=== PATIENT | male | born 1975 | race Caucasian/White ===

== ENCOUNTER 2019-05-01 16:40 | Inpatient (IN) | payer MEDICAID, OTHER ==
--- OUTSIDE RECORDS SUMMARY | 2019-05-01 17:04 | XMS REPORT | Continuity of Care Document ---
:1975 External Reference #:[id number] Author Name Eyal Carlos NP (transmitted by agent of provider Genet Sandoval) Address [address], [place] [address] Care Team Providers Name Role Phone Kayla Ibarra MD - Internal Care Team Information Account Specialist Medicine Problems Active Problems Provider Date Essential hypertension Eyal Carlos NP Onset: 11/24/2016 History of methamphetamine abuse Eyal Carlos NP Onset: 11/24/2016 Social History Type Date Description Comments Sex Unknown ETOH Use Denies alcohol use Recreational Drug Use Former Drug User Meth. No drugs currently, in recovery Tobacco Use Start: Unknown Patient is a current smoker, smokes every day Smoking Status Reviewed: 04/18/19 Patient is a current smoker, smokes every day Exercise Type/Frequency Exercises sporadically Allergies, Adverse Reactions, Alerts Description No Known Drug Allergies Medications Active Medications SIG Qnty Indications Ordering Date Provider Bupropion 2 tablets daily 60tabs F32.89 Eyal Carlos NP 04/18/2019 Hydrochloride ER (XL) 150mg Tablets ER 24HR Loratadine once a day for 30caps R05 Eyal Carlos NP 04/18/2019 10mg Capsules allergies Hydroxyzine HCL 1-2 tablets by 40tabs F41.9 Eyal Carlos NP 04/18/2019 25mg mouth every 6 Tablets hours as needed for anxiety Cephalexin take one capsule 28caps H60.12 Eyal Carlos NP 04/18/2019 500mg Capsules every 6 hours for 7 days Amlodipine Besylate 1 by mouth every 30tabs I10 Eyal Carlos NP 02/24/2018 5mg day Tablets Vitamin B-12 1 by mouth every Unknown Natural day 500mcg Tablets Immunizations Description No Information Available Vital Signs Date Vital Result Comment 04/18/2019 2:46pm Height 72 inches 6'0" Weight 181.00 lb Heart Rate 112 /min BP Systolic 127 mmHg BP Diastolic 83 mmHg BP Systolic Recheck 136 mmHg BP Diastolic Recheck 86 mmHg Body Temperature 97.9 F O2 % BldC Oximetry 96 % BMI (Body Mass Index) 24.5 kg/m2 02/24/2018 2:52pm Height 72 inches 6'0" Weight 187.00 lb Heart Rate 88 /min BP Systolic 140 mmHg BP Diastolic 84 mmHg Body Temperature 98.2 F O2 % BldC Oximetry 97 % BMI (Body Mass Index) 25.4 kg/m2 Results Description No Information Available Procedures Description No Information Available Medical Devices Description No Information Available Encounters Description No Information Available Assessments Date Code Description Provider 04/18/2019 F32.89 Other specified depressive episodes Eyal Carlos NP 04/18/2019 F41.9 Anxiety disorder, unspecified Eyal Carlos NP 04/18/2019 I10 Essential (primary) hypertension Eyal Carlos NP 04/18/2019 R09.81 Nasal congestion Eyal Carlos NP 04/18/2019 H60.12 Cellulitis of left external ear Eyal Carlos NP Plan of Treatment Future Appointment(s):05/23/2019 4:20 pm - Eyal Carlos NP at [facility] Internal Medicine - [facility]04/18/2019 - Eyal Carlos NPF32.89 Other specified depressive episodesNew Medication:Bupropion Hydrochloride ER (XL) 150 mg - 2 tablets dailyComments:Restart the Wellbutrin, one pill daily for a week. Increase to two pills after that.Follow up:4 vwnzsJ77.9 Anxiety disorder, unspecifiedNew Medication:Hydroxyzine HCL 25 mg - 1-2 tablets by mouth every 6 hours as needed for anxietyComments:You can use the hydroxyzine up to 4 times daily when feeling anxious. This may help with the cough and allergy related symptoms. It can also be effective to help you sleep.I10 Essential (primary) hypertensionComments:Restart the amlodipine daily./ Continue checking your blood pressure.R09.81 Nasal congestionComments:Try the hydroxyzine. If you would like a referral to an rough rounder machine let me know.H60.12 Cellulitis of left external earNew Medication:Cephalexin 500 mg - take one capsule every 6 hours for 7 daysComments:Complete the entire course of antibiotic.Let me know if symptoms are worsening or not improving. Functional Status Description No Information Available Mental Status Description No Information Available Referrals Description No Information Available
--- NOTE | 2019-05-01 19:21 | ED ---
Shortness of Breath - HPI Summary HPI Summary: 43 year old M arriving via private car from [facility] complains of intermittent episodes of shortness of breath since 04/21/19. Has several episodes each day during which he is unable to catch his breath. No hx asthma. 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 No fever, chest pain, n/v/d, decreased appetite. Under a lot of recent stress from going through a separation with his partner. Recent diet change after the separation. Hx anxiety. Restarted on Wellbutrin and amlodipine on 04/18/19. Is supposed to start taking hydroxyzine but hasn't yet. Went to [facility] today where he had EKG done which showed abnormal changes. Was referred to the ED for further workup and evaluation. Current dx sinus infection for which he is on cephalexin. Hx sinus infections. Surgical hx deviated septum. No pain. 0/10 pain in severity. Reports constant nasal drainage. Has been referred to prosthetic dentist and has testing scheduled. Symptoms aggravated by sitting upright and lying down. Symptoms alleviated by nothing. PMHx reviewed. Medications reviewed. Allergies reviewed. Surgical hx and FHx reviewed. Admits to smoking cigarettes daily. Admits to drinking alcohol and doing recreational drugs, last time being this past weekend when he drank alcohol and snorted cocaine and methamphetamine. - History of Current Complaint Chief Complaint: EDShortnessOfBreath Time Seen by Provider: 05/01/19 19:15 Hx Obtained From: Patient Onset/Duration: Lasting Days - 10, Still Present Current Severity: None Aggravating Factors: Other - sitting upright and lying down Alleviating Factors: Nothing - Allergy/Home Medications Allergies/Adverse Reactions: Allergies Allergy/AdvReac Type Severity Reaction Status Date / Time No Known Allergies Allergy Verified 05/01/19 16:51 Home Medications: Home Medications LoraTADine TAB(NF) [Claritin 10 MG TAB(NF)] 10 mg PO DAILY 05/01/19 [History Confirmed 05/01/19] Omeprazole (Nf) [Prilosec (NF)] 40 mg PO DAILY 05/01/19 [History Confirmed 05/01] amLODIPine TAB* [Norvasc 5 mg TAB*] 10 mg PO DAILY 05/01/19 [History Confirmed 05/01/19] PMH/Surg Hx/FS Hx/Imm Hx Cardiovascular History: Reports: Hx Hypertension GI History: Reports: Hx Gastroesophageal Reflux Disease, Hx Irritable Bowel Musculoskeletal History: Reports: Hx Tendonitis - LEFT ELBOW Sensory History: Denies: Hx Contacts or Glasses, Hx Hearing Aid Opthamlomology History: Denies: Hx Contacts or Glasses EENT History: Reports: Other - sinus infection Psychiatric History: Reports: Hx Anxiety, Hx Depression - Surgical History Surgery Procedure, Year, and Place: RIGHT PINKY FINGER [facility]. deviated septum 2018 Hx Anesthesia Reactions: No Infectious Disease History: No Infectious Disease History: Denies: Traveled Outside the [place] in Last 30 Days - Family History Known Family History: Negative: Cardiac Disease, Hypertension, Diabetes, Respiratory Disease Family History: denies - Social History Alcohol Use: None Hx Substance Use: Yes Substance Use Type: Reports: Cocaine Substance Use Comment - Amount & Last Used: methamphetamine Hx Tobacco Use: Yes Smoking Status (MU): Heavy Every Day Tobacco Smoker Type: Cigarettes Amount Used/How Often: 3/4 PPD Have You Smoked in the Last Year: Yes Review of Systems - ROS Summary Review of Systems Summary: Home Medications Medication Instructions Recorded Confirmed Type Bupropion XL* [Wellbutrin XL *] 150 mg PO QAM 10/12/17 05/01/19 History LoraTADine TAB(NF) [Claritin 10 MG 10 mg PO DAILY 05/01/19 05/01/19 History TAB(NF)] Omeprazole (Nf) [Prilosec (NF)] 40 mg PO DAILY 05/01/19 05/01/19 History amLODIPine TAB* [Norvasc 5 mg TAB*] 10 mg PO DAILY 05/01/19 05/01/19 History Negative: Fever Positive: Other - nasal drainage Negative: Chest Pain Positive: Shortness Of Breath Gastrointestinal: Negative - decreased appetite Positive: Abdominal Pain. Negative: Vomiting, Diarrhea, Nausea Positive: Other - stress All Other Systems Reviewed And Are Negative: Yes Physical Exam - Summary Physical Exam Summary: General: Well-developed, Well-nourished MALE. No acute distress. He is mildly anxious appearing. HEENT: Normocephalic, Atraumatic. Eyes: Conjuctiva normal, PERRL. Oropharynx: Clear, mucous membranes moist, (-) exudates. Neck: Soft, FROM, (-) lymphadenopathy, (-) thyromegaly, (-) JVD. Cardiovascular: Normal sinus rhythm, (-) murmur. Lungs: Clear to auscultation bilaterally (-) wheezes, (-) rales, (-) rhonchi. Abdomen: Soft, non-tender, non-distended, (-) organomegaly, normal bowel sounds. Back: (-) CVA tenderness Extremities: No edema. Skin: Warm, dry, (-) rash. Neuro: Alert and oriented x3, no focal deficits. Psychiatric: Mood normal, affect normal. Triage Information Reviewed: Yes Vital Signs On Initial Exam: Initial Vitals Temp Pulse Resp BP Pulse Ox 99.1 F 117 18 130/95 100 05/01/19 16:42 05/01/19 16:42 05/01/19 16:42 05/01/19 16:42 05/01/19 16:42 Vital Signs Reviewed: Yes Procedures - Sedation Patient Received Moderate/Deep Sedation with Procedure: No Diagnostics - Vital Signs Vital Signs Temp Pulse Resp BP Pulse Ox 05/01/19 18:30 98.2 F 110 16 132/85 100 05/01/19 16:42 99.1 F 117 18 130/95 100 - Laboratory Result Diagrams: 05/01/19 19:24 05/01/19 19:24 Lab Statement: Any lab studies that have been ordered have been reviewed, and results considered in the medical decision making process. - Radiology CXR Radiology Interpretation Completed By: ED Physician Summary of Radiographic Findings: Increased interstitial markings consistent with fluid overload. PENDING OFFICIAL REPORT. - EKG 1950 Cardiac Rate: Tachycardia - 107 BPM EKG Rhythm: Sinus Tachycardia Summary of EKG Findings: EKG at 19:50 reveals normal sinus tachycardia with rate of 107 BPM. T wave depressions in the lateral leads. No previous EKG to compare. This EKG was reviewed and interpreted by Dr. Lange. Course/Dx - Course Course Of Treatment: 43-year-old male presents from home with episodes of shortness of breath. Patient states he was recently restarted on his anxiety and hypertension medications. He does admit to alcohol and cocaine intake over the weekend. Workup demonstrates elevated troponin and BNP. Elevated d-dimer. CTA ordered. Patient given aspirin and beta mayra. Lovenox. Patient referred to hospitalist for admission. - Diagnoses Provider Diagnoses: Tobacco use, Acute coronary syndrome - Physician Notifications Discussed Care of Patient With: Eloy Gonzalez Time Discussed With Above Provider: 20:20 Instructed by Provider To: Admit As Inpatient Discharge ED - Sign-Out/Discharge Documenting (check all that apply): Patient Departure - Discharge Plan Condition: Good Disposition: ADMITTED TO [facility] - Billing Disposition and Condition Condition: GOOD Disposition: Admitted to [facility] - Attestation Statements Document Initiated by Scribe: Yes Documenting Scribe: Freida Sosa Provider For Whom Duaneibe is Documenting (Include Credential): Paola Lange MD Scribe Attestation: Freida Nicholas, scribed for Paola Lange MD on 05/02/19 at 0551. Scribe Documentation Reviewed: Yes Provider Attestation: The documentation as recorded by the Freida collins accurately reflects the service I personally performed and the decisions made by me, Paola Lange MD Status of Scribe Document: Viewed
[2019-05-01 19:33] LABS: ABS Lymphocytes 1.8 10^3/ul (1.0-4.8); ABS Monocytes 0.4 10^3/ul (0-0.8); ABS Neutrophils 5.2 10^3/ul (1.5-7.7); Eosinophil % 0.4 %; Hematocrit 41 % (42-52); Hemoglobin 14.2 g/dL (14.0-18.0); Lymphocyte % 23.9 %; Mean Corpuscular HGB Conc 35 g/dL (31-36); Mean Corpuscular Hemoglobin 32 pg (27-31); Mean Corpuscular Volume 92 fL (80-94); Mean Platelet Volume 8.8 fL (7.4-10.4); Platelet Count 206 10^3/uL (150-450); Red Blood Count 4.41 10^6 /uL (4.18-5.48); Red Cell Distribution Width 13 % (10-15); White Blood Count 7.4 10^3/uL (3.5-10.8)
[2019-05-01 19:39] LABS: INR 1.17 (0.82-1.09)
[2019-05-01 19:56] LABS: ALT 44 U/L (7-52); AST 34 U/L (13-39); Albumin 3.6 g/dL (3.2-5.2); Albumin/Globulin Ratio 1.3 (1-3); Alkaline Phosphatase 80 U/L (34-104); Anion Gap 7 mmol/L (2-11); BUN/Creatinine Ratio 18.7 (8-20); Blood Urea Nitrogen 25 mg/dL (6-24); CO2 Carbon Dioxide 28 mmol/L (22-32); Calcium 8.7 mg/dL (8.6-10.3); Chloride 104 mmol/L (101-111); EGFR African American 69.7 (>60); EGFR Non-African American 57.6 (>60); Globulin 2.7 g/dL (2-4); Glucose 148 mg/dL (70-100); Potassium 4.1 mmol/L (3.5-5.0); Sodium 139 mmol/L (135-145); Total Protein 6.3 g/dL (6.4-8.9)
[2019-05-01 20:01] LABS: Troponin I 0.05 ng/mL (<0.03)
[2019-05-01 20:10] LABS: TSH (Thyroid Stimulating Horm) 4.61 mcIU/mL (0.34-5.60)
[2019-05-01] MEDS ORDERED: Aspirin 81 mg CHEW TAB* 81 MG TAB.CHEW PO ONE (20:22)
[2019-05-01] MEDS ORDERED: Metoprolol Tartrate IV* 1 MG/ML 5 ML VIAL IV ONE (20:23)
[2019-05-01] MEDS ORDERED: Enoxaparin(*) 80 MG/0.8 ML SYR SUBCUT ONE (20:24)
[2019-05-01 21:39] LABS: Erythrocyte Sed Rate 24 mm/Hr (0-14)
[2019-05-01 22:51] LABS: Troponin I 0.07 ng/mL (<0.03)
[2019-05-01] MEDS ORDERED: Benzonatate CAP* 100 MG PO PRN (23:13)
[2019-05-01] MEDS ORDERED: Azithromycin TAB* 250 MG PO ONE (23:14)
[2019-05-01] MEDS ORDERED: NS 0.9% 1000 ML** 1,000 ML IV ONE (23:58)
[2019-05-02] MEDS ORDERED: Iodixanol* (CONTRAST) 320 MG/ML 100 ML SDV IV ONE (01:09)
[2019-05-02 01:49] LABS: Troponin I 0.05 ng/mL (<0.03)
[2019-05-02] MEDS ORDERED: Ondansetron INJ* 2 MG/ML VIAL IV PRN (02:40)
[2019-05-02] MEDS: Metoprolol Tartrate TAB* 25 MG PO SCH ×2 (02:47→10:53)
[2019-05-02] MEDS ORDERED: Lorazepam PYXIS KEY PRN (04:08)
[2019-05-02] MEDS ORDERED: LORazepam INJ* 2 MG/ML 1 ML VIAL IV PUSH PRN ×2 (04:08→11:31)
[2019-05-02 04:36] LABS: Urine Benzodiazepine Screen None Detected (None Detect); Urine Opiates Screen None Detected (None Detect)
[2019-05-02 04:50] LABS: Troponin I 0.05 ng/mL (<0.03)
[2019-05-02] MEDS ORDERED: BuPROPion XL* 150 MG TAB.XL PO SCH (09:00)
[2019-05-02] MEDS ORDERED: amLODIPine TAB* 5 MG PO SCH (09:00)
[2019-05-02] MEDS ORDERED: Pantoprazole TAB * 40 MG TAB PO SCH (09:00)
[2019-05-02] MEDS ORDERED: Aspirin EC TAB* 81 MG TAB.EC PO SCH (09:00)
[2019-05-02] MEDS ORDERED: Enoxaparin(*) 80 MG/0.8 ML SYR SUBCUT SCH (09:00)
[2019-05-02] MEDS ORDERED: Cetirizine* 10 MG TAB PO SCH (09:00)
[2019-05-02] MEDS ORDERED: Furosemide IV* 10 MG/ML VIAL (40 MG) IV ONE (09:57)
[2019-05-02] MEDS ORDERED: NS 0.9% 50 ML* 50 ML IV SCH (10:00)
[2019-05-02] MEDS ORDERED: Aspirin 81 mg CHEW TAB* 81 MG TAB.CHEW PO SCH (10:00)
--- NOTE | 2019-05-02 10:23 | HP ---
CC: Eyal Carlos NP, [facility] ADMISSION HISTORY AND PHYSICAL: DATE OF ADMISSION: 05/01/19 CHIEF COMPLAINT: Dyspnea. HISTORY OF PRESENT ILLNESS: Mr. Olsen is a 43-year-old man with history of hypertension and a nxiety who reports episodic dyspnea that began around 04/21/19. His breathing tends to be worse when supine, but also worse with exertion. 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 He also reports sweating and diaphoresis when he is having dyspnea, bu t denies any chest pain, nausea, or vomiting. He does have what he calls a sinus infection and compl ains about coughing and thick tenacious phlegm. The patient reports he was on cephalexin recently fo r a sinus infection, but no longer is on antibiotic. The patient denies history of heart disease or chronic lung disease. PAST MEDICAL HISTORY: Includes hypertension, anxiety, and GERD. PAST SURGICAL HISTORY: Deviated septum repair and right fifth finger tendon repair. MEDICATIONS ON ADMISSION: 1. Amlodipine 10 mg p.o. daily. 2. Wellbutrin XL 150 mg p.o. q.a.m. 3. Loratadine 10 mg p.o. daily p.r.n. 4. Omeprazole 40 mg p.o. daily. ALLERGIES: None. FAMILY HISTORY: Notable for 3 sisters who are alive and well. Mother and father alive and well. Hi s grandfather in World War II. 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 He is from his recently and under a great deal of stress. He has 4 children. He smokes cigarettes, from 3 cigarettes a day up to three-quarte rs of a pack a day. He drinks alcohol socially and he went to a republican last week and had cocaine and possible amphetamines as well. REVIEW OF SYSTEMS: The patient denies any fevers, weight loss, or anorexia. The patient denies any chest pain or peripheral edema. The patient denies any hemoptysis. The patient does report some vom iting with coughing in recent days. Remainder of a 14-point review of systems is negative, other than mentioned in the HPI. PHYSICAL EXAMINATION GENERAL: He is an anxious-appearing middle-aged man who appears diaphoretic and coughing constantly with a dry cough. VITAL SIGNS: Temperature is 37.3, pulse 103 to 116, respirations 20, blood pressure is 111/55, O2 sa t is 92%. HEENT: Head is normocephalic, atraumatic. Sclerae are anicteric. Pupils equal, round, and reactive to light and accommodation. Oropharynx is moist. No lesions. NECK: No JVD. No carotid bruit. No thyromegaly. LUNGS: Clear to auscultation and percussion bilaterally. HEART: Tachycardic, regular. No murmurs. ABDOMEN: Soft. Positive bowel sounds. No hepatosplenomegaly. EXTREMITIES: No peripheral edema. Dorsalis pedis pulses are 1+ bilaterally. NEUROLOGIC: Cranial nerves II through XII are intact. Motor strength is 5/5 throughout. Deep tendo n reflexes are 1+ and symmetric. SKIN EXAM: Notable for a few vesicular lesions in the left neck. Inferior to the ear, there is an e xcoriated lesion on the tragus of the left external ear. DIAGNOSTIC STUDIES/LAB DATA: Laboratory Data: Sodium 139, potassium 4.1, chloride 104, bicarb 28, BUN 25, creatinine 1.34, glucose 145, calcium 8.7. Albumin 3.6, AST 34, ALT 44. INR 1.17. D-dimer is 379. BNP is 834. Lactic acid 1.6. Troponin 0.15. TSH 4.61. White count 7.4, hemoglobin 14.2, h ematocrit 41%, platelets 306. EKG shows normal sinus rhythm and normal axis. T-wave inversion in I, aVL, and V4 through V6. There is no old EKG to compare with. Chest x-ray shows some cephalization of vessels. No effusions. No pulmonary edema. ASSESSMENT AND PLAN: A 43-year-old man presenting with dyspnea and EKG changes as well as a mildly e levated troponin. The concern would be for acute coronary syndrome versus pericarditis. The differe ntial also would include bronchitis, but the main concern would be that he could have a new onset of heart failure given his elevated BNP, mildly elevated D-dimer, and risk factors for heart disease; wh ich include tobacco abuse, cocaine use, and hypertension. The patient will be admitted to the hospit al, followed on telemetry with serial enzymes. The patient will be started on aspirin and metoprolol and subcutaneous Lovenox to prevent further thrombosis. Tomorrow we will get an echocardiogram and plan a stress test if he rules out for myocardial infarction. For his bronchitis, we will give him azithromycin orally and Tessalon Perles as needed for cough. For elevated D-dimer, the differential would also include pulmonary embolism with some heart strain c ausing elevated troponin. CT angiogram has been ordered and is pending at the time of admission. Code status is full. DVT prophylaxis. At this point, continue with early ambulation unless the CT shows pulmonary embolis Danie [id number]/[facility] #: [id number]
--- NOTE | 2019-05-02 10:26 | ECHO ---
*[facility]* [place] [address] Fax #: [phone] Transthoracic Echocardiogram Patient: Niall Olsen : 1975 Study Date: 05/02/2019 Age: 43 Gender: M HR: 88 bpm Height: 72 in /182.9 cm BSA: 2.04 m^2 Weight: 179.6 lb /81.6 kg BMI: 24.4 kg/m^2 *Websphere Architect: Grace Robison *Referring Physician: * Eloy GonzalezReading Physician: * Valente Ray MD Indications: SOB. History: Dyspnea. Risk factors: Drug abuse. Current tobacco use. Conclusions Summary: - Left ventricle: The cavity size is dilated. Wall thickness is mildly increased. Systolic function is severely reduced. The estimated ejection fraction is <10%. Globally. Can not r/o a clot in left ventricle apex. - Left atrium: The atrium is mildly dilated. - Right atrium: The atrium is dilated. - Mitral valve: There is moderate to severe regurgitation. - Aortic valve: There is trace regurgitation. - Tricuspid valve: There is mild-moderate regurgitation. - Pulmonic valve: There is trace to mild regurgitation. - No previous echocardiogram available. Study data: Transthoracic echocardiogram. Procedure: Transthoracic echocardiography was performed. Image quality was excellent. Complete 2D, spectral Doppler, and color flow Doppler. Location: Bedside. Patient status: Inpatient. Patient room number: 438. Rhythm: Normal sinus rhythm. Findings Left ventricle: The cavity size is dilated. Wall thickness is mildly increased. Systolic function is severely reduced. The estimated ejection fraction is <10%. Left ventricular diastolic function parameters are normal. Right ventricle: The cavity size is dilated. Wall thickness is normal. Systolic function is severely reduced. Left atrium: The atrium is mildly dilated. Right atrium: The atrium is dilated. Mitral valve: The leaflets are normal thickness. There is no evidence of stenosis. There is moderate to severe regurgitation. Aortic valve: The valve is trileaflet. The leaflets are normal thickness. There is no evidence of stenosis. There is trace regurgitation. Tricuspid valve: The leaflets are normal thickness. There is no evidence of stenosis. There is mild-moderate regurgitation. Pulmonic valve: The leaflets are normal thickness. There is no evidence of stenosis. There is trace to mild regurgitation. Aorta: The aortic root appears normal. The aortic arch appears normal. Pericardium: A trace pericardial effusion is identified. Pulmonary arteries: Systolic pressure is within the normal range, estimated to be 30 mm Hg. Systemic veins: Inferior vena cava: The vessel is normal in size. Pulmonary veins: The Pulmonary veins appear normal. Measurements Left ventricle Value Ref Aortic valve continued Value Ref YOLANDE, LAX 5.7 cm 4.2 - Peak grad, S 2.0 mm Hg ----- 5.8 MARTINEZ, VTI 2.64 cm^2 ----- ESD, LAX (H) 5.4 cm 2.5 - MARTINEZ, Vmax 2.32 cm^2 ----- 4.0 FS, LAX (L) 4 % 25 - 43 Mitral valve Value Ref PW, ED, LAX (H) 1.4 cm 0.6 - Peak E 0.75 m/sec ----- 1.0 Peak A 0.5 m/sec ----- E', avg, TDI 7.2 cm/sec -------- Decel time 59 ms - ---- E/e', avg, TDI 10 <=14 Peak E/A ratio 1.5 ----- ERO, PISA 0.25 cm^2 ----- LVOT Value Ref MR vol, PISA 38 ml ----- Diam, S 2.00 cm -------- MR fraction, PISA 61 % ----- Area 3.1 cm^2 -------- Peak rebekah, S 0.46 m/sec -------- Pulmonic valve Value Ref Mean grad, S 0 mm Hg -------- Peak v, S 0.46 m/sec ----- SV 24 ml -------- Peak grad, S 1.0 mm Hg ----- SV/bsa 12 ml/m^2 -------- Tricuspid valve Value Ref Ventricular septum Value Ref TR peak v 2.01 m/sec <=2 .8 IVS, ED (H) 1.5 cm 0.6 - Peak RV-RA grad, S 16 mm Hg ----- 1.0 Max TR rebekah 2.54 m/sec ----- Right ventricle Value Ref Aortic root Value Ref YOLANDE, LAX 3.7 cm -------- Root diam 3.7 cm <4. 2 YOLANDE minor ax, A4C (H) 4.4 cm 1.9 - mid 3.5 Ascending aorta Value Ref AAo AP diam, S 3.6 cm ----- Left atrium Value Ref ML dim, A4C 5.1 cm -------- Aortic arch Value Ref SI dim, A4C 6.0 cm -------- Arch diam 2.9 cm ----- Vol/bsa, ES, A/L (H) 45 ml/m^2 16 - 34 Decending aorta Value Ref Right atrium Value Ref Savage peak rebekah 0.46 m/sec ----- SI dim, ES (H) 6.3 cm 3.4 - 5.3 Inferior vena cava Value Ref ML dim, ES, A4C (H) 4.9 cm 2.6 - Diam 2.2 cm ----- 4.4 SI dim, ES, A4C (H) 6.3 cm 3.4 - 5.3 SI dim/bsa, ES, (H) 3.1 cm/m^2 1.8 - A4C 3.0 Aortic valve Value Ref Peak v, S 0.63 m/sec -------- VTI, S 9.3 cm -------- Mean grad, S 1.0 mm Hg -------- Legend: (L) and (H) angel values outside specified reference range. Prepared and electronically signed by Valente Ray MD 05/02/2019 10:26
[2019-05-02] MEDS ORDERED: Heparin 2 UNITS/ML IVPREMIX* 3,000 ML IV ONE (11:25)
[2019-05-02] MEDS ORDERED: Lidocaine 1% INJ* 10 MG/ML 30 ML SDV ONE (11:25)
[2019-05-02] MEDS ORDERED: Iodixanol 320 (CONTRAST) 100 ML SDV ONE (11:26)
[2019-05-02] MEDS ORDERED: LORazepam INJ* 2 MG/ML 1 ML VIAL ONE ×2 (11:37→12:35)
[2019-05-02 11:46] VITALS: BP 116/93
--- NOTE | 2019-05-02 12:09 | TRS ---
DATE OF ADMISSION: 05/01/2019 at approximately 2300. DATE OF TRANSFER: 05/02/2019. ATTENDING PHYSICIAN WHILE IN THE HOSPITAL: Dr. Wing Wu * (dictated by ROBLES Weller). ACCEPTING PHYSICIAN: Dr. Oviedo of the Advanced Heart Failure Service at [facility]. DISPOSITION: Transferred to a higher level of care to the Advanced Cardiology Service at [facility] under Dr. Oviedo. HISTORY OF PRESENT ILLNESS/HOSPITAL COURSE: Niall Olsen is a 43-year- old white male with a past medical history significant for hypertension, anxiety , and GERD who presented to the emergency department on 05/01/2019 due to dyspnea that began several weeks prior. It has been worse when he is supine and worse with exertion as well. It had come to the point where he was unable to perform his normal duties on the day of presentation. In brief, the patient was admitted to the hospital significantly tachycardic with heart rate in the 120s, stable blood pressure, and without hypoxia. He had a troponin that peaked at 0.07 and later down trended to 0.05. He had a CTA of his chest and thorax which was negative for PE. He had an echocardiogram which demonstrated an EF of 5 to 10 percent and a left ventricle thrombus could not be ruled out. The patient's initial EKG demonstrated T-wave inversions in the lateral leads. There was no prior EKG for comparison, including in his outpatient records. There were no Q- waves. Cardiology Services were immediately consulted and Annabelle Zuniga NP evaluated the patient and assisted with this transfer to [facility] Advanced Heart Failure Services. The patient will be transported emergently and the means of transport is still pending at this time. Our wafer abrading machine tender, Dr. Silverio, has been contacted regarding the balloon pump requested by Dr. Oviedo and this procedure is pending at this time. The patient is currently in the intensive care unit on BiPAP. CURRENT ACTIVE MEDICATIONS: 1. The patient received Lovenox 80 mg subcu. 2. The patient received 81 mg of aspirin this morning. 3. The patient received 50 ml of normal saline KVO. 4. The patient received 40 mg of IV Lasix this morning. 5. The patient received Cetirizine 10 mg p.o. this morning. All other medications have been held. They are: PRNS: 1. Zofran 4 mg IV q.6 hours prn nausea or vomiting. 2. Ativan 1 mg IV push q.6 hours prn anxiety. HOME MEDICATIONS: 1. Loratadine 10 mg p.o. daily. 2. Omeprazole 40 mg p.o. daily. 3. Amlodipine 10 mg p.o. daily. 4. Wellbutrin 150 mg p.o. daily. Of note, the patient had Metoprolol tartrate 25 mg po ordered and was last given 2:47 a.m. this morning and has since been held. His home Amlodipine has not been given. CONDITION: Guarded. ROBLES WELLER [id number]/[facility] #: [id number] MTDD
[2019-05-02] MEDS ORDERED: Lorazepam PYXIS KEY ONE (12:34)
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
--- NOTE | 2019-05-02 13:16 | CATH ---
CC: Eyal Carlos NP; Dr. Ray; Dr. David Oviedo MD ([facility] * INTRAAORTIC BALLOON PUMP PLACEMENT: DATE OF PROCEDURE: 05/02/19 - ROOM #ICU-07 PROCEDURE: Placement of a 40 cm Arrow intraaortic balloon pump via the right femoral artery using ultrasound guidance for arterial access. INDICATION OF PROCEDURE: The patient with severe left ventricular and right ventricular systolic dysfunction with LVEF less than 10% with recurrent difficulty breathing spells, now for transfer to [facility] and asked by Dr. Ray, Annabelle Zuniga NP, and Dr. Oviedo at [facility] to place intraaortic balloon pump to stabilize the patient for transfer. MEDICATIONS GIVEN: In the cardiovascular laboratory, lidocaine was given for local anesthesia to the right femoral artery area. LABORATORY RESULTS PRE-PROCEDURE: (From 05/01/2019)- hemoglobin and hematocrit of 14.2 and 41 with a platelet count of 206,000. ESR of 24. Chemistries from 05/01/19, sodium 139, potassium 4.1, chloride 104, bicarb 28, BUN and creatinine of 25 and 1.34. Of note, troponins were 0.05, 0.07, 0.05, and 0.05 respectively over the course of yesterday to today. The B-natriuretic peptide was 834. DESCRIPTION OF PROCEDURE: The patient was prepped and draped in sterile fashion. The right femoral artery was assessed by ultrasound and the right femoral artery was cannulated using an anterior wall only stick. The intraaortic balloon sheath was placed followed by the intraaortic balloon pump. The balloon was then turned on and had appropriate augmentation and afterload. It was placed on 1:1 pumping. The sheath was sutured in place and the clips were utilized to secure the intraaortic balloon pump. 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 The patient was stable at the time of transfer. The patient appeared to be in less distress at the end of the procedure with the balloon pump functioning. Afterwards I personally called Dr. Oviedo to keep him informed of the patient's status. [id number]/[facility] #: [id number] [facility]
[2019-05-02] MEDS ORDERED: Azithromycin TAB* 250 MG PO SCH (21:00)
== END 2019-05-02 15:23 | disposition short-term general hospital (02) | DRG 194 ==
LOC: ED 16:40 → MEDTELE 22:50 → INTOOBSV 22:50 → OBSVTOIN 22:50 → ICU 05-02 10:22 → OBSVTOIN 05-02 10:22
PROVIDERS: ADMIT Internal Medicine; ATTEND Internal Medicine
PROC: 5A02210 Assistance with Cardiac Output using Balloon Pump, Continuous (ICD-10-PCS; principal; 2019-05-02 11:30)
DX: I11.0 Hypertensive heart disease with heart failure (principal); I50.82 Biventricular heart failure; K21.9 Gastro-esophageal reflux disease without esophagitis; K58.9 Irritable bowel syndrome, unspecified; F41.9 Anxiety disorder, unspecified; F32.9 Major depressive disorder, single episode, unspecified; F17.210 Nicotine dependence, cigarettes, uncomplicated; I34.0 Nonrheumatic mitral (valve) insufficiency; I42.0 Dilated cardiomyopathy; R79.89 Other specified abnormal findings of blood chemistry; R00.0 Tachycardia, unspecified; Z79.899 Other long term (current) drug therapy
CPT/HCPCS: 33967; 36415; 36600; 71045; 71275; 80053; 80307; 82803; 83605; 83880; 84443; 84484; 85025; 85379; 85610; 85652; 87641; 93005; 93306; 96372; 96374; 99284; A9270-GY; C1725; G0378; J1644; J1650; J1940; J2060; J2405; J3490; Q9967

== ENCOUNTER → 2019-05-21 14:49 | Emergency (ER) | payer MEDICAID ==
--- OUTSIDE RECORDS SUMMARY | 2019-05-21 15:02 | XMS REPORT | Continuity of Care Document ---
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 No drugs currently, in recovery Tobacco Use Start: Unknown Patient is a current smoker, smokes every day Smoking Status Reviewed: 05/14/19 Patient is a current smoker, smokes every day Exercise Type/Frequency Exercises sporadically Allergies, Adverse Reactions, Alerts Description No Known Drug Allergies Medications Active Medications SIG Qnty Indications Ordering Date Provider Vitamin B-12 1 by mouth every 30tabs Eyal Carlos NP 05/14/2019 Natural day 500mcg Tablets Ensure Plus 1 can two times 60units R63.4 Eyal Carlos NP 05/14/2019 Liquid daily Loratadine once a day for 30caps R05 Eyal Carlos NP 04/18/2019 10mg Capsules allergies Hydroxyzine HCL 1-2 tablets by 40tabs F41.9 Eyal Carlos NP 04/18/2019 25mg mouth every 6 Tablets hours as needed for anxiety Aspirin 81 1 by mouth every Unknown 81mg Tablets day DR Griderilol 1 by mouth twice Unknown 6.25mg Tablets a day Digoxin 1 by mouth every Unknown 125mcg Tablets day Lisinopril 1 by mouth every Unknown 20mg Tablets 12 hours Spironolactone 1 by mouth every Unknown 25mg day Tablets History Medications Bupropion 2 tablets daily 60tabs F32.89 Eyal Carlos NP 04/18/2019 - Hydrochloride ER (XL) 05/14/2019 150mg Tablets ER 24HR Cephalexin take one capsule 28caps H60.12 Eyal Carlos NP 04/18/2019 - 500mg Capsules every 6 hours 04/25/2019 for 7 days Immunizations Description No Information Available Vital Signs Date Vital Result Comment 05/14/2019 1:46pm Height 72 inches 6'0" Weight 169.00 lb Heart Rate 98 /min BP Systolic 102 mmHg BP Diastolic 74 mmHg Body Temperature 97.9 F O2 % BldC Oximetry 97 % BMI (Body Mass Index) 22.9 kg/m2 04/18/2019 2:46pm Height 72 inches 6'0" Weight 181.00 lb Heart Rate 112 /min BP Systolic 127 mmHg BP Diastolic 83 mmHg BP Systolic Recheck 136 mmHg BP Diastolic Recheck 86 mmHg Body Temperature 97.9 F O2 % BldC Oximetry 96 % BMI (Body Mass Index) 24.5 kg/m2 Results Test Acquired Facility Test Result H/L Range Note Date Laboratory test 05/01/2019 [facility] Troponin-I 0.07 ng/mL Critical <0.[address] (TnI) [place] [address] [phone] Laboratory test 05/01/2019 [facility] MRSA SEE RESULT 2, [address] [place] [address] [phone] CBC Auto Diff 05/01/2019 [facility] White 7.4 Normal 3.5-10.[address] Blood 10^3/[place] [address] Count [phone] Red Blood Count 4.41 10^6/uL Normal 4.18-5.48 Hemoglobin 14.2 g/dL Normal 14.0-18.0 Hematocrit 41 % Low 42-52 Mean Corpuscular Volume 92 fL Normal 80-94 Mean Corpuscular Hemoglobin 32 pg High 27-31 Mean Corpuscular HGB Conc 35 g/dL Normal 31-36 Red Cell Distribution Width 13 % Normal 10-15 Platelet Count 206 10^3/uL Normal 150-450 Mean Platelet Volume 8.8 fL Normal 7.4-10.4 Abs Neutrophils 5.2 10^3/uL Normal 1.5-7.7 Abs Lymphocytes 1.8 10^3/uL Normal 1.0-4.8 Abs Monocytes 0.4 10^3/uL Normal 0-0.8 Abs Eosinophils 0.0 10^3/uL Normal 0-0.6 Abs Basophils 0.0 10^3/uL Normal 0-0.2 Abs Nucleated RBC 0.0 10^3/uL Granulocyte % 69.3 % Lymphocyte % 23.9 % Monocyte % 5.7 % Eosinophil % 0.4 % Basophil % 0.7 % Nucleated Red Blood Cells % 0.0 Inr/Protime 05/01/2019 [facility] Inr 1.17 High 0.82-1.[address] [place] [address] [phone] Laboratory test 05/01/2019 [facility] Lactic Acid 1.6 Normal 0.5-2.0 5 finding 101 mmol/[place] [address] [phone] B-Type Natriuretic Peptide BNP 834 pg/mL High <=100 Comp Metabolic 05/01/2019 [facility] Sodium 139 mmol/L Normal 135-[address] [place] [address] [phone] Potassium 4.1 mmol/L Normal 3.5-5.0 Chloride 104 mmol/L Normal 101-111 Co2 Carbon Dioxide 28 mmol/L Normal 22-32 Anion Gap 7 mmol/L Normal 2-11 Glucose 148 mg/dL High 70-100 Blood Urea Nitrogen 25 mg/dL High 6-24 Creatinine 1.34 mg/dL High 0.67-1.17 BUN/Creatinine Ratio 18.7 Normal 8-20 Calcium 8.7 mg/dL Normal 8.6-10.3 Total Protein 6.3 g/dL Low 6.4-8.9 Albumin 3.6 g/dL Normal 3.2-5.2 Globulin 2.7 g/dL Normal 2-4 Albumin/Globulin Ratio 1.3 Normal 1-3 Total Bilirubin 0.70 mg/dL Normal 0.2-1.0 Alkaline Phosphatase 80 U/L Normal 34-104 Alt 44 U/L Normal 7-52 Ast 34 U/L Normal 13-39 Egfr Non- 57.6 >60 Egfr 69.7 >60 6 Laboratory 05/01/2019 [facility] Troponin-I 0.05 Critical < 0.03 7 test finding [address] (TnI) ng/[place] [address] [phone] TSH (Thyroid Stim Horm) 4.61 mcIU/mL Normal 0.34-5.60 D Dimer Quantitative 379 ng/mL High Less Than 230 8 Erythrocyte Sed Rate 24 mm/Hr High 0-14 1 Result TnIDx:0.07 Called to [id number] at: 22:50:03 by:[email or web address] Read back by: [email or web address] Troponin-I testing on Plasma Separator Tubes (PST) has a known false positive rate of 0.20-0.40%. All positive troponins reflex immediately to secondary confirmatory testing. Using the [employer] DxI 800 Access Immunoassay systems, the 99th percentile upper reference limit was demonstrated to be < 0.03 ng/mL. 2 Verbal to [id number] by [id number] at 2259 on 05/01/19. Results read back accurately. 3 SEE RESULT BELOW Name: NIALL OLSEN : [address]: Paola Lange MD Acct: [id number] Unit: [id number] AGE: 43 Location: ED Re05/01/19 SEX: M Status: REG ER SPEC: [id number] CHARLEY: 05/01/[address] [facility] DR: Paola Lange MD REQ: [id number] RECD: 05/01/19 STATUS: COMP OTHR DR: Eyal Carlos SOLUTION ADVISOR _ SOURCE: NASAL SPDESC: ORDERED: MRSA PCR-Nasal COMMENTS: Verbal to [id number] by [email or web address] at 2259 on 05/01/19. Results read back accurately. Procedure Result Reported Site MRSA PCR (Nasal) Final 05/01/19- 2300 ML Organism 1 MRSA DETECTED As with all diagnostic procedures, the laboratory results obtained should be used in conjunction with other clinical information available to the physician, including confirmation by another method, as applicable. * ML - Main Lab . END OF REPORT DEPARTMENT OF PATHOLOGY, [address] [place] [address] Heriberto Wade M.D. Director [facility] # [id number] 4 Standard intensity warfarin therapeutic range: 2.0-3.0 High intensity warfarin therapeutic range: 2.5-3.[address] [facility] Severe Sepsis and Septic Shock Management Bundle Measure requires all lactic acids initially measuring >2.0 mmol/L be repeated. 6 Because ethnic data is not always readily available, this report includes an eGFR for both -Americans and non- Americans. The National Kidney Disease Education Program (NKDEP) does not endorse the use of the MDRD equation for patients that are not between the ages of 18 and 70, are , have extremes of body size, muscle mass, or nutritional status, or are non- or non-. According to the National Kidney Foundation, irrespective of diagnosis, the stage of the disease is based on the level of kidney function: Stage Description GFR(mL/min/1.73 m(2)) 1 Kidney damage with normal or decreased GFR 90 2 Kidney damage with mild decrease in GFR 60-89 3 Moderate decrease in GFR 30-59 4 Severe decrease in GFR 15-29 5 Kidney failure <15 (or dialysis) 7 Result TnIDx:0.05 Called to [id number] at: 20:00:33 by:[email or web address] Read back by: [email or web address] Troponin-I testing on Plasma Separator Tubes (PST) has a known false positive rate of 0.20-0.40%. All positive troponins reflex immediately to secondary confirmatory testing. Using the [employer] 800 Access Immunoassay systems, the 99th percentile upper reference limit was demonstrated to be < 0.03 ng/mL. 8 Please note: The following may produce a false positive D Dimer test: - Rheumatoid factor greater than 60 IU/ml - Plasma hemoglobin greater than 0.05 gm/dl - Bilirubin greater than 50 mg/dl - Lipids greater than 1000 mg/dl - FDP greater than 20 ug/ml Procedures Date Code Description Status 05/02/2019 57522 ECHO Transthorasic Realtime 2D W Doppler & Color Flow Hosp Completed Medical Devices Description No Information Available Encounters Type Date Location Provider Dx Diagnosis Office Visit 04/18/2019 [employer] [facility] [employer] [facility] Internal Eyal Carlos NP F32.89 Other specified 2:40p Medicine - [facility] depressive episodes F41.9 Anxiety disorder, unspecified I10 Essential (primary) hypertension R09.81 Nasal congestion H60.12 Cellulitis of left external ear Assessments Date Code Description Provider 05/14/2019 R57.0 Cardiogenic shock Eyal Carlos NP 05/14/2019 R63.4 Abnormal weight loss Eyal Carlos NP 05/02/2019 R06.02 Shortness of breath Valente Ray M.D. 05/02/2019 R06.00 Dyspnea, unspecified Meredith Mccormack PA-C 05/02/2019 R00.0 Tachycardia, unspecified Meredith Mccormack PA-C 05/02/2019 R79.89 Other specified abnormal findings of Meredith Mccormack PA-C blood chemistry 05/01/2019 R06.02 Shortness of breath Eloy Gonzalez M.D.,FACP 05/01/2019 R79.89 Other specified abnormal findings of Eloy Gonzalez M.D.,[facility] blood chemistry 04/18/2019 F32.89 Other specified depressive episodes yEal Carlos NP 04/18/2019 F41.9 Anxiety disorder, unspecified Eyal Carlos NP 04/18/2019 I10 Essential (primary) hypertension Eyal Carlos NP 04/18/2019 R09.81 Nasal congestion Eyal Carlos NP 04/18/2019 H60.12 Cellulitis of left external ear Eyal Carlos NP Plan of Treatment Future Appointment(s):06/14/2019 8:40 am - Eyal Carlos NP at [facility] - [facility]05/14/2019 - Eyal Carlos, NPR57.0 Cardiogenic shockComments: Continue taking all medications prescribed at [place].If you have any significant worsening in symptoms call 911 or go to the ER.Follow up:cancel 05/23 appt. F/U 1 wykiwP76.4 Abnormal weight lossNew Medication:Ensure Plus - 1 can two times daily Functional Status Description No Information Available Mental Status Description No Information Available Referrals Description No Information Available
== END | disposition left against medical advice (07) ==
LOC: ED 14:49
DX: R09.02 Hypoxemia (principal); Z53.21 Procedure and treatment not carried out due to patient leaving prior to being seen by health care provider

== ENCOUNTER 2019-06-02 22:48 | Emergency (ER) | payer MEDICAID, OTHER ==
[2019-06-02 23:03] LABS: ABS Basophils 0.1 10^3/ul (0-0.2); ABS Eosinophils 0.1 10^3/ul (0-0.6); ABS Lymphocytes 2.4 10^3/ul (1.0-4.8); ABS Monocytes 0.7 10^3/ul (0-0.8); ABS Neutrophils 3.9 10^3/ul (1.5-7.7); Eosinophil % 0.9 %; Hematocrit 39 % (42-52); Hemoglobin 13.5 g/dL (14.0-18.0); Lymphocyte % 33.9 %; Mean Corpuscular HGB Conc 35 g/dL (31-36); Mean Corpuscular Hemoglobin 32 pg (27-31); Mean Corpuscular Volume 91 fL (80-94); Mean Platelet Volume 7.8 fL (7.4-10.4); Nucleated Red Blood Cells % 0.1; Platelet Count 208 10^3/uL (150-450); Red Blood Count 4.24 10^6 /uL (4.18-5.48); Red Cell Distribution Width 13 % (10-15); White Blood Count 7.1 10^3/uL (3.5-10.8)
[2019-06-02 23:09] LABS: INR 1.01 (0.82-1.09)
[2019-06-02 23:21] LABS: ALT 29 U/L (7-52); Albumin 3.9 g/dL (3.2-5.2); Albumin/Globulin Ratio 1.3 (1-3); Alkaline Phosphatase 71 U/L (34-104); BUN/Creatinine Ratio 26.2 (8-20); Blood Urea Nitrogen 27 mg/dL (6-24); CO2 Carbon Dioxide 30 mmol/L (22-32); Calcium 9.1 mg/dL (8.6-10.3); Chloride 101 mmol/L (101-111); EGFR African American 94.5 (>60); EGFR Non-African American 78.1 (>60); Globulin 2.9 g/dL (2-4); Glucose 80 mg/dL (70-100); Sodium 136 mmol/L (135-145); Total Protein 6.8 g/dL (6.4-8.9)
[2019-06-02 23:23] LABS: Troponin I 0.01 ng/mL (<0.03)
[2019-06-02 23:37] LABS: Anion Gap 5 mmol/L (2-11); Potassium 4.4 mmol/L (3.5-5.0)
[2019-06-02 23:40] LABS: Alcohol < 10 mg/dL (<10)
[2019-06-02 23:45] LABS: AST 21 U/L (13-39)
--- NOTE | 2019-06-02 23:48 | ED ---
HPI Chest Pain - HPI Summary HPI Summary: Patient is a 43 y/o M w/ Hx of HTN, GERD and heart failure who presents to [facility] with complaints of left anterior chest pain. Patient was evaluated at [facility] for SOB on 05/02/20 and was admitted. Cardioechogram showed left ventricular ejection fracture of less than 10%. Patient had intra-aortic balloon pump placed and he was transferred to [place] for further workup. He states that he was discharged on 05/10/19. Patient states that this evening, , around 2130, he had onset of left anterior chest pain while lying in bed. He denies nausea and SOB, but it is reported that family member who was with him had stated that his color was "off". Patient states that at its worst, chest pain was 5/10 in severity. He states that his CP is currently mostly resolved, stating that it is at the most 1/10 in severity. Movement is noted to aggravate Sx. 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 NKDA reported. PSHx of finger surgery. FMHx of cardiac disease and HTN reported. He denies tobacco, alcohol, and substance usage. Home medications and allergies are reviewed. - History of Current Complaint Time Seen by Provider: 06/02/19 22:49 Hx Obtained From: Patient Onset/Duration: Started Hours Ago, Still Present Timing: Lasting Hours Initial Severity: Moderate Current Severity: Mild Pain Intensity: 1 Pain Scale Used: 0-10 Numeric Chest Pain Location: Left Anterior Aggravating Factor(s): Movement Alleviating Factor(s): Nothing Associated Signs and Symptoms: Positive: Chest Pain, Other: - color was "off". Negative: Shortness of Breath, Nausea - Allergy/Home Medications Allergies/Adverse Reactions: Allergies Allergy/AdvReac Type Severity Reaction Status Date / Time No Known Allergies Allergy Verified 05/04/19 10:20 Home Medications: Home Medications Aspirin EC TAB* [Ecotrin EC Low Dose 81 MG*] 81 mg PO DAILY 06/03/19 [History Confirmed 06/03/19] Carvedilol TAB* [Coreg TAB*] 6.25 mg PO BID 06/03/19 [History Confirmed 06/03/19 ] Digoxin TAB* [Lanoxin TAB*] 0.125 mg PO DAILY 06/03/19 [History Confirmed ] Lisinopril TAB* [Prinivil TAB*] 20 mg PO BID 06/03/19 [History Confirmed ] Spironolactone TAB* [Aldactone TAB*] 25 mg PO DAILY 06/03/19 [History Confirmed 06/03/19] hydrOXYzine HCL TAB* [Atarax 25 MG TAB*] 25 mg PO TID PRN 06/03/19 [History Confirmed 06/03/19] PMH/Surg Hx/FS Hx/Imm Hx Cardiovascular History: Reports: Hx Congestive Heart Failure, Hx Hypertension Respiratory History: Comment Only: Other Respiratory Problems/Disorders - DEVIATED SEPTUM SURGERY 2018 GI History: Reports: Hx Gastroesophageal Reflux Disease, Hx Irritable Bowel Musculoskeletal History: Reports: Hx Tendonitis - LEFT ELBOW Sensory History: Denies: Hx Contacts or Glasses, Hx Hearing Aid Opthamlomology History: Denies: Hx Contacts or Glasses Psychiatric History: Reports: Hx Anxiety, Hx Depression - Surgical History Surgery Procedure, Year, and Place: RIGHT PINKY FINGER [facility]. deviated septum 2018 Hx Anesthesia Reactions: No - Immunization History Date of Influenza Vaccine: none Infectious Disease History: No Infectious Disease History: Denies: Traveled Outside the [place] in Last 30 Days - Family History Known Family History: Positive: Cardiac Disease, Hypertension Negative: Diabetes, Respiratory Disease - Social History Alcohol Use: None Hx Substance Use: Yes Substance Use Type: Reports: Cocaine Substance Use Comment - Amount & Last Used: methamphetamine Hx Tobacco Use: Yes Smoking Status (MU): Former Smoker Type: Cigarettes Amount Used/How Often: 3/4 PPD Have You Smoked in the Last Year: Yes - Additional Comments History Additional Comments: PMHx of HTN, GERD, anxiety, and heart failure PSHx of finger surgery FMHx of HTN and cardiac disease Review of Systems - ROS Summary Review of Systems Summary: Home Medications Medication Instructions Recorded Confirmed Type Aspirin EC TAB* [Ecotrin EC Low 81 mg PO DAILY 06/03/19 06/03/19 History Dose 81 MG*] Carvedilol TAB* [Coreg TAB*] 6.25 mg PO BID 06/03/19 06/03/19 History Digoxin TAB* [Lanoxin TAB*] 0.125 mg PO DAILY 06/03/19 06/03/19 History Lisinopril TAB* [Prinivil TAB*] 20 mg PO BID 06/03/19 06/03/19 History Spironolactone TAB* [Aldactone 25 mg PO DAILY 06/03/19 06/03/19 History TAB*] hydrOXYzine HCL TAB* [Atarax 25 MG 25 mg PO TID PRN 06/03/19 06/03/19 History TAB*] Positive: Chest Pain Negative: Shortness Of Breath Negative: Nausea Skin: Other - color was "off" All Other Systems Reviewed And Are Negative: Yes Physical Exam - Summary Physical Exam Summary: General: Well-developed, Well-nourished male. No acute distress. HEENT: Normocephalic, Atraumatic. Eyes: Conjuctiva normal, PERRL. Oropharynx: Clear, mucous membranes moist, (-) exudates. Neck: Soft, FROM, (-) lymphadenopathy, (-) thyromegaly, (-) JVD. Cardiovascular: Normal sinus rhythm, (-) murmur. Lungs: Clear to auscultation bilaterally (-) wheezes, (-) rales, (-) rhonchi. Abdomen: Soft, non-tender, non-distended, (-) organomegaly, normal bowel sounds. Back: (-) CVA tenderness Extremities: No edema. Skin: Warm, dry, (-) rash. Neuro: Alert and oriented x3, no focal deficits. Psychiatric: Mildly anxious appearing. Triage Information Reviewed: Yes Vital Signs On Initial Exam: Initial Vitals Temp Pulse Resp BP Pulse Ox 97.9 F 88 16 130/85 100 06/02/19 22:50 06/02/19 22:50 06/02/19 22:50 06/02/19 22:50 06/02/19 22:50 Vital Signs Reviewed: Yes Procedures - Sedation Patient Received Moderate/Deep Sedation with Procedure: No Diagnostics - Vital Signs Vital Signs Temp Pulse Resp BP Pulse Ox 06/02/19 22:50 97.9 F 88 16 130/85 100 - Laboratory Lab Results: Lab Results 06/02/19 06/02/19 06/02/19 Range/Units 22:58 22:58 22:58 WBC 7.1 (3.5-10.8) 10^3/uL RBC 4.24 (4.18-5.48) 10^6 /uL Hgb 13.5 L (14.0-18.0) g/dL Hct 39 L (42-52) % MCV 91 (80-94) fL MCH 32 H (27-31) pg MCHC 35 (31-36) g/dL RDW 13 (10-15) % Plt Count 208 (150-450) 10^3/uL MPV 7.8 (7.4-10.4) fL Neut % (Auto) 54.8 % Lymph % (Auto) 33.9 % Payne % (Auto) 9.3 % Eos % (Auto) 0.9 % Baso % (Auto) 1.1 % Absolute Neuts (auto) 3.9 (1.5-7.7) 10^3/ul Absolute Lymphs (auto) 2.4 (1.0-4.8) 10^3/ul Absolute Monos (auto) 0.7 (0-0.8) 10^3/ul Absolute Eos (auto) 0.1 (0-0.6) 10^3/ul Absolute Basos (auto) 0.1 (0-0.2) 10^3/ul Absolute Nucleated RBC 0.0 10^3/ul Nucleated RBC % 0.1 INR (Anticoag Therapy) 1.01 (0.82-1.09) Sodium 136 (135-145) mmol/L Potassium 4.4 (3.5-5.0) mmol/L Chloride 101 (101-111) mmol/L Carbon Dioxide 30 (22-32) mmol/L Anion Gap 5 (2-11) mmol/L BUN 27 H (6-24) mg/dL Creatinine 1.03 (0.67-1.17) mg/dL Est GFR ( Amer) 94.5 (>60) Est GFR (Non-Af Amer) 78.1 (>60) BUN/Creatinine Ratio 26.2 H (8-20) Glucose 80 (70-100) mg/dL Lactic Acid (0.5-2.0) mmol/L Calcium 9.1 (8.6-10.3) mg/dL Total Bilirubin 0.40 (0.2-1.0) mg/dL AST 21 (13-39) U/L ALT 29 (7-52) U/L Alkaline Phosphatase 71 (34-104) U/L Troponin I 0.01 (<0.03) ng/mL B-Natriuretic Peptide (<=100) pg/mL Total Protein 6.8 (6.4-8.9) g/dL Albumin 3.9 (3.2-5.2) g/dL Globulin 2.9 (2-4) g/dL Albumin/Globulin Ratio 1.3 (1-3) Serum Alcohol < 10 (<10) mg/dL 06/02/19 06/02/19 Range/Units 22:58 22:58 WBC (3.5-10.8) 10^3/uL RBC (4.18-5.48) 10^6 /uL Hgb (14.0-18.0) g/dL Hct (42-52) % MCV (80-94) fL MCH (27-31) pg MCHC (31-36) g/dL RDW (10-15) % Plt Count (150-450) 10^3/uL MPV (7.4-10.4) fL Neut % (Auto) % Lymph % (Auto) % Payne % (Auto) % Eos % (Auto) % Baso % (Auto) % Absolute Neuts (auto) (1.5-7.7) 10^3/ul Absolute Lymphs (auto) (1.0-4.8) 10^3/ul Absolute Monos (auto) (0-0.8) 10^3/ul Absolute Eos (auto) (0-0.6) 10^3/ul Absolute Basos (auto) (0-0.2) 10^3/ul Absolute Nucleated RBC 10^3/ul Nucleated RBC % INR (Anticoag Therapy) (0.82-1.09) Sodium (135-145) mmol/L Potassium (3.5-5.0) mmol/L Chloride (101-111) mmol/L Carbon Dioxide (22-32) mmol/L Anion Gap (2-11) mmol/L BUN (6-24) mg/dL Creatinine (0.67-1.17) mg/dL Est GFR ( Amer) (>60) Est GFR (Non-Af Amer) (>60) BUN/Creatinine Ratio (8-20) Glucose (70-100) mg/dL Lactic Acid 1.1 (0.5-2.0) mmol/L Calcium (8.6-10.3) mg/dL Total Bilirubin (0.2-1.0) mg/dL AST (13-39) U/L ALT (7-52) U/L Alkaline Phosphatase (34-104) U/L Troponin I (<0.03) ng/mL B-Natriuretic Peptide 25 (<=100) pg/mL Total Protein (6.4-8.9) g/dL Albumin (3.2-5.2) g/dL Globulin (2-4) g/dL Albumin/Globulin Ratio (1-3) Serum Alcohol (<10) mg/dL Result Diagrams: 06/02/19 22:58 06/02/19 22:58 Lab Statement: Any lab studies that have been ordered have been reviewed, and results considered in the medical decision making process. - Radiology CXR Summary of Radiographic Findings: CXR shows no infiltrate, no pleural effusion, pending official report. - EKG 2249 Cardiac Rate: NL - rate of 81 BPM EKG Rhythm: Sinus Rhythm Summary of EKG Findings: EKG at 2249 reveals normal sinus rhythm with rate of 81 BPM, no acute changes, no ischemic changes. This EKG was reviewed and interpreted by Dr. Lange. Chest Pain Course/Dx - Course Course Of Treatment: 43 year old male presents with chest pain starting tonight. he became concerned as he was recently discharged from the hospital with CHF. EF <10%. has had this before, worse with arm movement. no sob, diaphoresis, nausea. no f/c/cough. exam wnl. workup essentially wnl. including serial troponins. patient discharged to home. Follow up with PCP, follow up [place] for any worsening symptoms. - Diagnoses Provider Diagnoses: Chest pain Discharge ED - Sign-Out/Discharge Documenting (check all that apply): Patient Departure - discharge - Discharge Plan Condition: Stable Disposition: HOME Patient Education Materials: Chest Pain (ED) Referrals: Eyal Carlos, REGISTRATION REP [Primary Care Provider] - 3 Days Additional Instructions: PLEASE RETURN TO ED FOR ANY NEW OR WORSENING SYMPTOMS. PLEASE FOLLOW UP WITH YOUR PRIMARY CARE PHYSICIAN WITHIN THREE DAYS. - Billing Disposition and Condition Condition: STABLE Disposition: Home - Attestation Statements Document Initiated by Scribe: Yes Documenting Scribe: KARINA DELACRUZ Provider For Whom Scribe is Documenting (Include Credential): NICKI LANGE MD Scribe Attestation: IKARINA, scribed for NICKI LANGE MD on 06/03/19 at 0422. Scribe Documentation Reviewed: Yes Provider Attestation: The documentation as recorded by the scribe, KARINA DELACRUZ accurately reflects the service I personally performed and the decisions made by me, NICKI LANGE MD Status of Scribe Document: Viewed
[2019-06-03 00:47] LABS: Urine Appearance Clear; Urine Bilirubin Negative (Negative); Urine Blood Negative (Negative); Urine Color Straw; Urine Glucose Negative (Negative); Urine Ketones Negative (Negative); Urine Nitrite Negative (Negative); Urine Protein Negative (Negative); Urine Specific Gravity 1.012 (1.010-1.030); Urine Urobilinogen Negative (Negative)
[2019-06-03 00:54] LABS: Urine Benzodiazepine Screen None Detected (None Detect); Urine Opiates Screen None Detected (None Detect)
[2019-06-03 02:31] VITALS: BP 113/81
== END 2019-06-03 02:29 | disposition home or self-care (01) ==
LOC: ED 22:48
DX: R07.9 Chest pain, unspecified (principal); I11.0 Hypertensive heart disease with heart failure; I50.9 Heart failure, unspecified; K21.9 Gastro-esophageal reflux disease without esophagitis; Z87.891 Personal history of nicotine dependence; F41.9 Anxiety disorder, unspecified; F32.9 Major depressive disorder, single episode, unspecified; Z79.82 Long term (current) use of aspirin; Z79.899 Other long term (current) drug therapy
CPT/HCPCS: 36415; 71045; 80053; 80307; 80320; 81003; 83605; 83880; 84484; 85025; 85610; 93005; 99283; G0480

== ENCOUNTER 2020-01-10 16:23 | Inpatient (IN) ==
[2020-01-10] MEDS ORDERED: NS 0.9% 1000 ml BAG 1,000 ML IV ONE (16:33)
[2020-01-10 16:41] LABS: ABS Basophils 0.1 10^3/ul (0-0.2); ABS Lymphocytes 1.1 10^3/ul (1.0-4.8); ABS Monocytes 0.5 10^3/ul (0-0.8); ABS Neutrophils 4.9 10^3/ul (1.5-7.7); Eosinophil % 0.2 %; Hematocrit 46 % (42-52); Hemoglobin 15.7 g/dL (14.0-18.0); Mean Corpuscular HGB Conc 35 g/dL (31-36); Mean Corpuscular Hemoglobin 32 pg (27-31); Mean Corpuscular Volume 93 fL (80-94); Mean Platelet Volume 8.6 fL (7.4-10.4); Nucleated Red Blood Cells % 0.1; Platelet Count 230 10^3/uL (150-450); Red Blood Count 4.88 10^6 /uL (4.18-5.48); Red Cell Distribution Width 14 % (10-15); White Blood Count 6.7 10^3/uL (3.5-10.8)
[2020-01-10] MEDS ORDERED: Alteplase (100 mg Vial) 100 mg VIAL ONE (16:49)
[2020-01-10 16:50] LABS: Activated Partial Thrombo Time 29.8 seconds (26.0-38.0); INR 1.15 (0.82-1.09)
[2020-01-10] MEDS ORDERED: Alteplase (100 mg Vial) 100 mg VIAL IV ONE ×2 (17:02)
[2020-01-10 17:13] LABS: ALT 20 U/L (7-52); AST 15 U/L (13-39); Albumin 3.6 g/dL (3.2-5.2); Albumin/Globulin Ratio 1.4 (1-3); Alkaline Phosphatase 58 U/L (34-104); Anion Gap 7 mmol/L (2-11); BUN/Creatinine Ratio 13.5 (8-20); Blood Urea Nitrogen 17 mg/dL (6-24); CO2 Carbon Dioxide 27 mmol/L (22-32); Calcium 8.9 mg/dL (8.6-10.3); Chloride 106 mmol/L (101-111); Cholesterol 178 mg/dL; EGFR African American 74.6 (>60); EGFR Non-African American 61.6 (>60); Globulin 2.6 g/dL (2-4); Glucose 83 mg/dL (70-100); HDL Cholesterol 35.3 mg/dL; LDL Cholesterol 110 mg/dL; Potassium 3.9 mmol/L (3.5-5.0); Sodium 140 mmol/L (135-145); Total Protein 6.2 g/dL (6.4-8.9); Triglycerides 162 mg/dL
[2020-01-10 17:19] LABS: Alcohol, S < 10 mg/dL (<10); Digoxin 0.4 ng/ml (0.8-2.0)
[2020-01-10] MEDS ORDERED: Iodixanol (CONTRAST) 320 MG/ML 100 ML SDV IV ONE (17:31)
[2020-01-10] MEDS ORDERED: NS 0.9% 500 ml BAG 500 ML IV ONE (18:22)
[2020-01-10] MEDS ORDERED: Ondansetron 4 mg VIAL 2 MG/ML 2 ml VIAL IV PRN (18:26)
[2020-01-10] MEDS ORDERED: NS 0.9% 1000 ml BAG 1,000 ML IV SCH (18:30)
[2020-01-10 19:26] LABS: Troponin I 0.01 ng/mL (<0.03)
[2020-01-10 20:14] LABS: Urine Appearance Clear; Urine Bilirubin Negative (Negative); Urine Blood Negative (Negative); Urine Color Yellow; Urine Glucose 3+(>=500 mg/dL) (Negative); Urine Ketones Negative (Negative); Urine Nitrite Negative (Negative); Urine Protein Negative (Negative); Urine Specific Gravity 1.045 (1.010-1.030); Urine Urobilinogen Negative (Negative)
[2020-01-10 20:19] LABS: Urine Bacteria Absent (Absent); Urine Red Blood Cell Trace(0-2/hpf) (Absent); Urine Squamous Epithelial Cell Present (Absent); Urine White Blood Cell 1+(6-10/hpf) (Absent)
[2020-01-11] MEDS ORDERED: Perflutren Lipid Microsphere 3 ML VIAL ONE (07:57)
[2020-01-11 08:13] LABS: ABS Basophils 0.1 10^3/ul (0-0.2); ABS Lymphocytes 2.2 10^3/ul (1.0-4.8); ABS Monocytes 0.6 10^3/ul (0-0.8); ABS Neutrophils 4.9 10^3/ul (1.5-7.7); Eosinophil % 0.2 %; Hematocrit 43 % (42-52); Hemoglobin 15.1 g/dL (14.0-18.0); Lymphocyte % 28.7 %; Mean Corpuscular HGB Conc 35 g/dL (31-36); Mean Corpuscular Hemoglobin 33 pg (27-31); Mean Corpuscular Volume 94 fL (80-94); Mean Platelet Volume 8.6 fL (7.4-10.4); Nucleated Red Blood Cells % 0.1; Platelet Count 227 10^3/uL (150-450); Red Blood Count 4.63 10^6 /uL (4.18-5.48); Red Cell Distribution Width 14 % (10-15); White Blood Count 7.7 10^3/uL (3.5-10.8)
[2020-01-11 08:34] LABS: BUN/Creatinine Ratio 11.2 (8-20); Calcium 8.9 mg/dL (8.6-10.3); EGFR Non-African American 67.8 (>60); Magnesium 1.8 mg/dL (1.9-2.7); Potassium 4.8 mmol/L (3.5-5.0)
[2020-01-11] MEDS ORDERED: Magnesium Sulfate 2 gm BAG 2 GM/50 ML BAG IVPB ONE (08:50)
[2020-01-11] MEDS ORDERED: Iohexol 350 (CONTRAST) 500 ML MDV IV ONE (18:15)
[2020-01-11] MEDS ORDERED: Heparin DRIP 25,000 UNITS BAG 25,000 UNITS/500 ML BAG ONE (20:51)
[2020-01-11] MEDS ORDERED: Labetalol IV 5 MG/ML 20 ml VIAL ONE (20:52)
[2020-01-11] MEDS ORDERED: Heparin DRIP 25,000 UNITS BAG 25,000 UNITS/500 ML BAG IV SCH ×2 (21:00→22:30)
[2020-01-11] MEDS ORDERED: Heparin 5000 UNITS/ML 1 mL VIAL IV SCH (21:00)
[2020-01-11] MEDS ORDERED: Norepinephrine 16MCG/ML IVPRE 4,000 MCG/250 ML BAG IV SCH ×2 (21:00)
[2020-01-11] MEDS ORDERED: Labetalol IV 5 MG/ML 20 ml VIAL IV PUSH PRN ×2 (21:11→22:19)
[2020-01-11 22:18] LABS: ABS Basophils 0.1 10^3/ul (0-0.2); ABS Lymphocytes 1.1 10^3/ul (1.0-4.8); ABS Monocytes 0.4 10^3/ul (0-0.8); ABS Neutrophils 7.1 10^3/ul (1.5-7.7); Hematocrit 43 % (42-52); Hemoglobin 15.2 g/dL (14.0-18.0); Lymphocyte % 12.9 %; Mean Corpuscular HGB Conc 35 g/dL (31-36); Mean Corpuscular Hemoglobin 33 pg (27-31); Mean Corpuscular Volume 93 fL (80-94); Mean Platelet Volume 8.8 fL (7.4-10.4); Nucleated Red Blood Cells % 0.1; Platelet Count 234 10^3/uL (150-450); Red Blood Count 4.66 10^6 /uL (4.18-5.48); Red Cell Distribution Width 14 % (10-15); White Blood Count 8.7 10^3/uL (3.5-10.8)
[2020-01-11 22:28] LABS: EGFR African American 96.2 (>60); EGFR Non-African American 79.5 (>60)
[2020-01-12] MEDS ORDERED: NS 0.9% 1000 ml BAG 1,000 ML IV SCH ×2 (01:45)
[2020-01-12 05:43] LABS: ABS Basophils 0.1 10^3/ul (0-0.2); ABS Lymphocytes 1.8 10^3/ul (1.0-4.8); ABS Monocytes 0.7 10^3/ul (0-0.8); ABS Neutrophils 7.6 10^3/ul (1.5-7.7); Hematocrit 45 % (42-52); Hemoglobin 15.7 g/dL (14.0-18.0); Lymphocyte % 17.4 %; Mean Corpuscular HGB Conc 35 g/dL (31-36); Mean Corpuscular Hemoglobin 32 pg (27-31); Mean Corpuscular Volume 93 fL (80-94); Mean Platelet Volume 9.1 fL (7.4-10.4); Platelet Count 227 10^3/uL (150-450); Red Blood Count 4.88 10^6 /uL (4.18-5.48); Red Cell Distribution Width 14 % (10-15); White Blood Count 10.2 10^3/uL (3.5-10.8)
[2020-01-12 06:55] LABS: Calcium 9.1 mg/dL (8.6-10.3); Magnesium 2.2 mg/dL (1.9-2.7); Potassium 4.8 mmol/L (3.5-5.0)
[2020-01-12 07:01] LABS: BUN/Creatinine Ratio 13.3 (8-20)
[2020-01-12] MEDS ORDERED: niCARdipine 0.1MG/ML IVPREMIX 20 MG/200 ML BAG IV SCH (11:00)
[2020-01-12] MEDS ORDERED: Lorazepam PYXIS KEY PRN ×2 (14:19→18:37)
[2020-01-12] MEDS ORDERED: LORazepam 2 mg VIAL 1 ml IV PUSH ONE ×2 (14:19→18:37)
[2020-01-12 18:03] VITALS: BP 123/86
== END 2020-01-12 19:00 | disposition short-term general hospital (02) ==
LOC: ED 16:23 → ICU 20:19
PROVIDERS: ADMIT Internal Medicine; ATTEND Internal Medicine

== ENCOUNTER 2020-01-22 09:16 | Inpatient (IN) ==
[2020-01-22] MEDS ORDERED: Senna TAB 8.6 mg TAB PO PRN (16:03)
[2020-01-22] MEDS ORDERED: Magnesium Hydroxide LIQ 30 ML UDC PO PRN (16:03)
[2020-01-22] MEDS: Heparin 5000 UNITS/ML 1 mL VIAL SUBCUT SCH (20:57)
[2020-01-23] MEDS: Heparin 5000 UNITS/ML 1 mL VIAL SUBCUT SCH ×3 (06:06→21:56)
[2020-01-23 06:23] LABS: ABS Basophils 0.1 10^3/ul (0-0.2); ABS Lymphocytes 1.8 10^3/ul (1.0-4.8); ABS Monocytes 0.6 10^3/ul (0-0.8); ABS Neutrophils 3.2 10^3/ul (1.5-7.7); Eosinophil % 0.4 %; Hematocrit 44 % (42-52); Hemoglobin 15.6 g/dL (14.0-18.0); Mean Corpuscular HGB Conc 35 g/dL (31-36); Mean Corpuscular Hemoglobin 32 pg (27-31); Mean Corpuscular Volume 92 fL (80-94); Mean Platelet Volume 7.7 fL (7.4-10.4); Nucleated Red Blood Cells % 0.1; Platelet Count 291 10^3/uL (150-450); Red Blood Count 4.83 10^6 /uL (4.18-5.48); Red Cell Distribution Width 13 % (10-15); White Blood Count 5.7 10^3/uL (3.5-10.8)
[2020-01-23 06:33] LABS: Albumin 3.9 g/dL (3.2-5.2); Albumin/Globulin Ratio 1.3 (1-3); BUN/Creatinine Ratio 16.8 (8-20); Calcium 9.8 mg/dL (8.6-10.3); EGFR African American 96.2 (>60); EGFR Non-African American 79.5 (>60); Potassium 4.5 mmol/L (3.5-5.0); Total Bilirubin 0.9 mg/dL (0.2-1.0); Total Protein 6.9 g/dL (6.4-8.9)
[2020-01-23] MEDS: Aspirin EC 81 mg TAB.EC (enteric coated) PO SCH (09:01)
[2020-01-23] MEDS: VALSARTAN PO SCH ×2 (11:30→20:51)
[2020-01-23] MEDS: SACUBITRIL PO SCH ×2 (11:30→20:51)
[2020-01-24] MEDS: Heparin 5000 UNITS/ML 1 mL VIAL SUBCUT SCH ×3 (06:29→21:17)
[2020-01-24] MEDS: SACUBITRIL PO SCH ×2 (08:16→21:17)
[2020-01-24] MEDS: VALSARTAN PO SCH ×2 (08:16→21:17)
[2020-01-24] MEDS: Aspirin EC 81 mg TAB.EC (enteric coated) PO SCH (08:16)
[2020-01-25] MEDS: Heparin 5000 UNITS/ML 1 mL VIAL SUBCUT SCH ×3 (05:45→22:01)
[2020-01-25] MEDS: VALSARTAN PO SCH ×2 (08:06→20:18)
[2020-01-25] MEDS: Aspirin EC 81 mg TAB.EC (enteric coated) PO SCH (08:06)
[2020-01-25] MEDS: SACUBITRIL PO SCH ×2 (08:06→20:18)
[2020-01-26] MEDS: Heparin 5000 UNITS/ML 1 mL VIAL SUBCUT SCH ×3 (05:44→21:30)
[2020-01-26] MEDS: VALSARTAN PO SCH ×2 (09:06→19:58)
[2020-01-26] MEDS: Aspirin EC 81 mg TAB.EC (enteric coated) PO SCH (09:06)
[2020-01-26] MEDS: SACUBITRIL PO SCH ×2 (09:06→19:58)
[2020-01-27] MEDS: Heparin 5000 UNITS/ML 1 mL VIAL SUBCUT SCH ×3 (06:35→21:20)
[2020-01-27] MEDS: Aspirin EC 81 mg TAB.EC (enteric coated) PO SCH (08:48)
[2020-01-27] MEDS: VALSARTAN PO SCH ×2 (08:48→19:52)
[2020-01-27] MEDS: SACUBITRIL PO SCH ×2 (08:48→19:52)
[2020-01-28] MEDS: Heparin 5000 UNITS/ML 1 mL VIAL SUBCUT SCH ×3 (06:05→22:04)
[2020-01-28] MEDS: Aspirin EC 81 mg TAB.EC (enteric coated) PO SCH (09:04)
[2020-01-28] MEDS: VALSARTAN PO SCH ×2 (09:04→20:01)
[2020-01-28] MEDS: SACUBITRIL PO SCH ×2 (09:04→20:01)
[2020-01-29] MEDS: Heparin 5000 UNITS/ML 1 mL VIAL SUBCUT SCH ×3 (05:49→21:52)
[2020-01-29] MEDS: Aspirin EC 81 mg TAB.EC (enteric coated) PO SCH (10:17)
[2020-01-29] MEDS: VALSARTAN PO SCH ×2 (10:17→20:02)
[2020-01-29] MEDS: Nicotine PATCH 14 MG/24 HR PATCH TRANSDERM SCH (10:17)
[2020-01-29] MEDS: SACUBITRIL PO SCH ×2 (10:17→20:02)
[2020-01-30] MEDS: Heparin 5000 UNITS/ML 1 mL VIAL SUBCUT SCH ×3 (05:42→21:34)
[2020-01-30 07:31] LABS: ABS Basophils 0.1 10^3/ul (0-0.2); ABS Lymphocytes 2.1 10^3/ul (1.0-4.8); ABS Monocytes 0.7 10^3/ul (0-0.8); ABS Neutrophils 3.8 10^3/ul (1.5-7.7); Eosinophil % 0.2 %; Hematocrit 42 % (42-52); Lymphocyte % 31.7 %; Mean Corpuscular HGB Conc 36 g/dL (31-36); Mean Corpuscular Hemoglobin 33 pg (27-31); Mean Corpuscular Volume 92 fL (80-94); Platelet Count 236 10^3/uL (150-450); Red Blood Count 4.55 10^6 /uL (4.18-5.48); Red Cell Distribution Width 13 % (10-15); White Blood Count 6.7 10^3/uL (3.5-10.8)
[2020-01-30 07:46] LABS: Albumin 3.8 g/dL (3.2-5.2); Albumin/Globulin Ratio 1.4 (1-3); BUN/Creatinine Ratio 14.4 (8-20); Calcium 9.6 mg/dL (8.6-10.3); EGFR African American 100.8 (>60); EGFR Non-African American 83.3 (>60); Globulin 2.7 g/dL (2-4); Potassium 4.5 mmol/L (3.5-5.0); Total Bilirubin 0.7 mg/dL (0.2-1.0); Total Protein 6.5 g/dL (6.4-8.9)
[2020-01-30] MEDS: SACUBITRIL PO SCH ×2 (09:01→20:10)
[2020-01-30] MEDS: Nicotine PATCH 14 MG/24 HR PATCH TRANSDERM SCH (09:01)
[2020-01-30] MEDS: Aspirin EC 81 mg TAB.EC (enteric coated) PO SCH (09:01)
[2020-01-30] MEDS: VALSARTAN PO SCH ×2 (09:01→20:10)
[2020-01-31] MEDS: Heparin 5000 UNITS/ML 1 mL VIAL SUBCUT SCH (06:48)
[2020-01-31 06:58] VITALS: BP 107/63
[2020-01-31] MEDS: Aspirin EC 81 mg TAB.EC (enteric coated) PO SCH (09:46)
[2020-01-31] MEDS: Nicotine PATCH 14 MG/24 HR PATCH TRANSDERM SCH (09:47)
[2020-01-31] MEDS: SACUBITRIL PO SCH (09:47)
[2020-01-31] MEDS: VALSARTAN PO SCH (09:47)
== END 2020-01-31 10:37 | disposition home or self-care (01) | DRG 58 ==
LOC: PMRU 14:58
PROVIDERS: ADMIT Physical Medicine & Rehabilitation; ATTEND Physical Medicine & Rehabilitation

== ENCOUNTER 2021-03-29 16:30 | Inpatient (IN) ==
[2021-03-29] MEDS ORDERED: Lactated Ringers 1000 ml BAG 1,000 ML IV ONE (17:09)
[2021-03-29 17:23] LABS: ABS Basophils 0.1 10^3/ul (0-0.2); ABS Lymphocytes 1.3 10^3/ul (1.0-4.8); Eosinophil % 0.1 %; Hematocrit 42 % (42-52); Lymphocyte % 11.8 %; Mean Corpuscular HGB Conc 34 g/dL (31-36); Mean Corpuscular Hemoglobin 32 pg (27-31); Mean Corpuscular Volume 93 fL (80-94); Mean Platelet Volume 8.7 fL (7.4-10.4); Platelet Count 270 10^3/uL (150-450); Red Blood Count 4.45 10^6 /uL (4.18-5.48); Red Cell Distribution Width 14 % (10-15); White Blood Count 11.4 10^3/uL (3.5-10.8)
[2021-03-29 17:40] LABS: ALT 27 U/L (7-52); AST 18 U/L (13-39); Albumin 3.4 g/dL (3.2-5.2); Albumin/Globulin Ratio 1.1 (1-3); Alkaline Phosphatase 73 U/L (35-149); Anion Gap 6 mmol/L (2-11); Blood Urea Nitrogen 8 mg/dL (6-24); CO2 Carbon Dioxide 27 mmol/L (22-32); Calcium 8.6 mg/dL (8.6-10.3); Chloride 98 mmol/L (101-111); Globulin 3.2 g/dL (2-4); Glucose 171 mg/dL (70-100); Lipase 11 U/L (11.0-82.0); Magnesium 1.7 mg/dL (1.9-2.7); Potassium 4.6 mmol/L (3.5-5.0); Sodium 131 mmol/L (135-145); Total Protein 6.6 g/dL (6.4-8.9)
[2021-03-29 17:44] LABS: Troponin I 0.05 ng/mL (<0.03)
[2021-03-29 17:51] LABS: C Reactive Protein 40.67 mg/L (<8.01)
[2021-03-29] MEDS ORDERED: Piperacillin/Tazobac ADVAN 3.375 GM in NS 0.9% 100 ml BAG 100 ML IVPB ONE (18:00)
[2021-03-29] MEDS ORDERED: Lactated Ringers 1000 ml BAG 1,000 ML IV SCH (18:00)
[2021-03-29] MEDS ORDERED: Iohexol 350 (CONTRAST) 500 ML MDV IV ONE (18:09)
[2021-03-29 18:11] LABS: Influenza A Molecular Negative (Negative); Influenza B Molecular Negative (Negative); Rapid COVID-19 Molecular Undetected (Undetected)
[2021-03-29 18:19] LABS: Digoxin < 0.3 ng/ml (0.8-2.0)
[2021-03-29] MEDS ORDERED: Furosemide 40 mg/4 ml IV VIAL IV ONE (18:33)
[2021-03-29 18:34] LABS: Erythrocyte Sed Rate 23 mm/Hr (0-14); TSH Ultra Thyroid Stim Horm 2.66 mcIU/mL (0.34-5.60)
[2021-03-29] MEDS ORDERED: Magnesium Sulfate 2 gm BAG 2 GM/50 ML BAG IVPB ONE (18:35)
[2021-03-29 19:42] LABS: INR 1.34 (0.86-1.15)
[2021-03-29] MEDS: Heparin DRIP 25,000 UNITS BAG 25,000 UNITS/500 ML BAG IV SCH (21:12)
[2021-03-29] MEDS: Heparin 5000 UNITS/ML 1 mL VIAL IV SCH (21:12)
[2021-03-29 21:30] LABS: Urine Appearance Clear; Urine Bilirubin Negative (Negative); Urine Blood Negative (Negative); Urine Color Colorless; Urine Glucose Negative (Negative); Urine Ketones Negative (Negative); Urine Nitrite Negative (Negative); Urine Protein Negative (Negative); Urine Specific Gravity 1.009 (1.002-1.030); Urine Urobilinogen Negative (Negative)
[2021-03-29 21:46] LABS: Urine Benzodiazepine Screen None Detected (None Detect); Urine Cannabinoids Screen None Detected (None Detect); Urine Opiates Screen None Detected (None Detect)
[2021-03-29] MEDS ORDERED: Zosyn per Pharmacy NOTE FOLLOW UP SCH (23:45)
[2021-03-29 23:48] LABS: ABS Basophils 0.1 10^3/ul (0-0.2); ABS Lymphocytes 1.9 10^3/ul (1.0-4.8); ABS Monocytes 1.2 10^3/ul (0-0.8); ABS Neutrophils 7.9 10^3/ul (1.5-7.7); Eosinophil % 0.1 %; Hematocrit 41 % (42-52); Lymphocyte % 17.2 %; Mean Corpuscular HGB Conc 34 g/dL (31-36); Mean Corpuscular Hemoglobin 31 pg (27-31); Mean Corpuscular Volume 92 fL (80-94); Mean Platelet Volume 8.4 fL (7.4-10.4); Platelet Count 251 10^3/uL (150-450); Red Blood Count 4.46 10^6 /uL (4.18-5.48); Red Cell Distribution Width 14 % (10-15); White Blood Count 11.2 10^3/uL (3.5-10.8)
[2021-03-30 00:07] LABS: Blood Urea Nitrogen 10 mg/dL (6-24)
[2021-03-30 00:52] LABS: Troponin I 0.03 ng/mL (<0.03)
[2021-03-30] MEDS ORDERED: Morphine 4 MG/ML VIAL (1 ml) IV ONE (00:59)
[2021-03-30] MEDS ORDERED: ZOSYN 3.375 GM x ONE DOSE over 30 miuntes IV ×2 (01:30→07:30)
[2021-03-30 03:05] LABS: Troponin I 0.03 ng/mL (<0.03)
[2021-03-30] MEDS: Morphine 2 MG/ML SYRINGE IV PRN ×4 (03:55→15:34)
[2021-03-30 06:12] LABS: ABS Basophils 0.1 10^3/ul (0-0.2); ABS Lymphocytes 1.8 10^3/ul (1.0-4.8); ABS Monocytes 1.3 10^3/ul (0-0.8); Eosinophil % 0.1 %; Hematocrit 40 % (42-52); Hemoglobin 13.8 g/dL (14.0-18.0); Lymphocyte % 14.5 %; Mean Corpuscular HGB Conc 35 g/dL (31-36); Mean Corpuscular Hemoglobin 32 pg (27-31); Mean Corpuscular Volume 91 fL (80-94); Mean Platelet Volume 8.2 fL (7.4-10.4); Platelet Count 246 10^3/uL (150-450); Red Blood Count 4.36 10^6 /uL (4.18-5.48); Red Cell Distribution Width 14 % (10-15); White Blood Count 12.1 10^3/uL (3.5-10.8)
[2021-03-30 06:50] LABS: Calcium 8.3 mg/dL (8.6-10.3); Potassium 4.4 mmol/L (3.5-5.0)
[2021-03-30] MEDS ORDERED: ZOSYN 3.375 GM Q8H per EXTENDED INFUSION IV SCH (15:30)
[2021-03-30] MEDS: Piperacillin/Tazobac ADVAN 3.375 GM in NS 0.9% 100 ml BAG 100 ML IV SCH (15:34)
[2021-03-30] MEDS ORDERED: Prochlorperazine 5 mg/ml 2 ml VIAL (10 mg) IV PRN (15:57)
[2021-03-30] MEDS: Heparin DRIP 25,000 UNITS BAG 25,000 UNITS/500 ML BAG IV SCH (16:05)
[2021-03-31] MEDS: Piperacillin/Tazobac ADVAN 3.375 GM in NS 0.9% 100 ml BAG 100 ML IV SCH ×4 (00:57→22:36)
[2021-03-31 06:46] LABS: ABS Basophils 0.1 10^3/ul (0-0.2); ABS Lymphocytes 1.5 10^3/ul (1.0-4.8); ABS Monocytes 0.9 10^3/ul (0-0.8); ABS Neutrophils 7.5 10^3/ul (1.5-7.7); Eosinophil % 0.2 %; Hematocrit 40 % (42-52); Hemoglobin 13.6 g/dL (14.0-18.0); Lymphocyte % 15.4 %; Mean Corpuscular HGB Conc 34 g/dL (31-36); Mean Corpuscular Hemoglobin 32 pg (27-31); Mean Corpuscular Volume 93 fL (80-94); Mean Platelet Volume 8.4 fL (7.4-10.4); Nucleated Red Blood Cells % 0.1; Platelet Count 225 10^3/uL (150-450); Red Blood Count 4.25 10^6 /uL (4.18-5.48); Red Cell Distribution Width 14 % (10-15)
[2021-03-31 07:05] LABS: Calcium 8.6 mg/dL (8.6-10.3); Magnesium 1.9 mg/dL (1.9-2.7); Potassium 4.4 mmol/L (3.5-5.0)
[2021-03-31] MEDS: Heparin 5000 UNITS/ML 1 mL VIAL IV SCH (07:38)
[2021-03-31] MEDS: Heparin DRIP 25,000 UNITS BAG 25,000 UNITS/500 ML BAG IV SCH (13:31)
[2021-04-01 06:13] LABS: ABS Lymphocytes 1.4 10^3/ul (1.0-4.8); ABS Monocytes 0.9 10^3/ul (0-0.8); Eosinophil % 0.1 %; Hematocrit 40 % (42-52); Hemoglobin 13.7 g/dL (14.0-18.0); Lymphocyte % 16.3 %; Mean Corpuscular HGB Conc 34 g/dL (31-36); Mean Corpuscular Hemoglobin 32 pg (27-31); Mean Corpuscular Volume 93 fL (80-94); Mean Platelet Volume 8.1 fL (7.4-10.4); Platelet Count 228 10^3/uL (150-450); Red Blood Count 4.31 10^6 /uL (4.18-5.48); Red Cell Distribution Width 14 % (10-15); White Blood Count 8.3 10^3/uL (3.5-10.8)
[2021-04-01 06:36] LABS: Albumin 2.8 g/dL (3.2-5.2); Albumin/Globulin Ratio 0.9 (1-3); Calcium 8.6 mg/dL (8.6-10.3); Direct Bilirubin 0.4 mg/dL (0.03-0.18); Indirect Bilirubin 1.1 mg/dL (0.3-1.0); Magnesium 1.9 mg/dL (1.9-2.7); Potassium 4.6 mmol/L (3.5-5.0); Total Bilirubin 1.5 mg/dL (0.2-1.0); Total Protein 5.8 g/dL (6.4-8.9)
[2021-04-01] MEDS: Heparin DRIP 25,000 UNITS BAG 25,000 UNITS/500 ML BAG IV SCH (06:58)
[2021-04-01] MEDS: Piperacillin/Tazobac ADVAN 3.375 GM in NS 0.9% 100 ml BAG 100 ML IV SCH ×3 (08:03→23:04)
[2021-04-02] MEDS: Heparin DRIP 25,000 UNITS BAG 25,000 UNITS/500 ML BAG IV SCH (05:21)
[2021-04-02 05:53] LABS: ABS Lymphocytes 1.3 10^3/ul (1.0-4.8); ABS Monocytes 0.7 10^3/ul (0-0.8); Eosinophil % 0.1 %; Hematocrit 41 % (42-52); Hemoglobin 14.2 g/dL (14.0-18.0); Lymphocyte % 18.8 %; Mean Corpuscular HGB Conc 35 g/dL (31-36); Mean Corpuscular Hemoglobin 32 pg (27-31); Mean Corpuscular Volume 91 fL (80-94); Mean Platelet Volume 7.9 fL (7.4-10.4); Nucleated Red Blood Cells % 0.1; Platelet Count 250 10^3/uL (150-450); Red Cell Distribution Width 14 % (10-15); White Blood Count 7.1 10^3/uL (3.5-10.8)
[2021-04-02 06:14] LABS: Calcium 8.4 mg/dL (8.6-10.3); Magnesium 1.9 mg/dL (1.9-2.7); Potassium 4.2 mmol/L (3.5-5.0)
[2021-04-02] MEDS ORDERED: Magnesium Sulfate 2 gm BAG 2 GM/50 ML BAG IVPB ONE (06:58)
[2021-04-02 11:09] LABS: Urine Creatinine Concentration 96.8 mg/dL
[2021-04-02] MEDS: Piperacillin/Tazobac ADVAN 3.375 GM in NS 0.9% 100 ml BAG 100 ML IV SCH ×3 (11:31→23:01)
[2021-04-03] MEDS: Heparin DRIP 25,000 UNITS BAG 25,000 UNITS/500 ML BAG IV SCH (00:30)
[2021-04-03 06:20] LABS: ABS Monocytes 0.6 10^3/ul (0-0.8); ABS Neutrophils 3.7 10^3/ul (1.5-7.7); Eosinophil % 0.1 %; Hematocrit 40 % (42-52); Hemoglobin 13.8 g/dL (14.0-18.0); Lymphocyte % 19.3 %; Mean Corpuscular HGB Conc 35 g/dL (31-36); Mean Corpuscular Hemoglobin 32 pg (27-31); Mean Corpuscular Volume 92 fL (80-94); Mean Platelet Volume 7.9 fL (7.4-10.4); Platelet Count 260 10^3/uL (150-450); Red Blood Count 4.32 10^6 /uL (4.18-5.48); Red Cell Distribution Width 13 % (10-15); White Blood Count 5.3 10^3/uL (3.5-10.8)
[2021-04-03 06:38] LABS: Calcium 8.5 mg/dL (8.6-10.3); Magnesium 2.2 mg/dL (1.9-2.7); Potassium 4.3 mmol/L (3.5-5.0)
[2021-04-03] MEDS: Amoxicillin/Clavul 875/125 TAB (Augmentin 875 tab) PO SCH ×2 (07:40→20:15)
[2021-04-03] MEDS ORDERED: Heparin DRIP 25,000 UNITS BAG 25,000 UNITS/500 ML BAG IV SCH (10:00)
[2021-04-03] MEDS ORDERED: Heparin 5000 UNITS/ML 1 mL VIAL IV SCH (14:00)
[2021-04-03] MEDS: Morphine 2 MG/ML SYRINGE IV PRN (21:00)
[2021-04-04] MEDS: Morphine 2 MG/ML SYRINGE IV PRN ×5 (02:03→21:29)
[2021-04-04 07:24] LABS: ABS Lymphocytes 1.1 10^3/ul (1.0-4.8); ABS Monocytes 0.6 10^3/ul (0-0.8); Eosinophil % 0.3 %; Hematocrit 41 % (42-52); Lymphocyte % 18.6 %; Mean Corpuscular HGB Conc 34 g/dL (31-36); Mean Corpuscular Hemoglobin 32 pg (27-31); Mean Corpuscular Volume 93 fL (80-94); Mean Platelet Volume 7.9 fL (7.4-10.4); Platelet Count 288 10^3/uL (150-450); Red Blood Count 4.43 10^6 /uL (4.18-5.48); Red Cell Distribution Width 14 % (10-15); White Blood Count 5.8 10^3/uL (3.5-10.8)
[2021-04-04 07:29] LABS: Calcium 8.7 mg/dL (8.6-10.3); Potassium 4.7 mmol/L (3.5-5.0)
[2021-04-04] MEDS: Amoxicillin/Clavul 875/125 TAB (Augmentin 875 tab) PO SCH ×2 (08:07→21:33)
[2021-04-05 07:40] LABS: Calcium 9.2 mg/dL (8.6-10.3); Potassium 4.3 mmol/L (3.5-5.0)
[2021-04-05 07:41] VITALS: BP 100/64
[2021-04-05] MEDS: Morphine 2 MG/ML SYRINGE IV PRN (08:26)
[2021-04-05] MEDS: Amoxicillin/Clavul 875/125 TAB (Augmentin 875 tab) PO SCH (08:27)
== END 2021-04-05 11:30 | disposition home or self-care (01) | DRG 134 ==
LOC: EDHOLD 16:30 → ED 16:30 → SUATTDRO 22:45 → MEDTELE 03-30 10:31 → SUATTDRO 03-31 13:51
PROVIDERS: ADMIT Hospitalist; ATTEND Hospitalist

== ENCOUNTER 2021-05-01 11:06 | Inpatient (IN) ==
[2021-05-01 11:53] LABS: ABS Lymphocytes 1.4 10^3/ul (1.0-4.8); ABS Monocytes 0.4 10^3/ul (0-0.8); ABS Neutrophils 4.3 10^3/ul (1.5-7.7); Eosinophil % 0.4 %; Hematocrit 43 % (42-52); Hemoglobin 14.8 g/dL (14.0-18.0); Mean Corpuscular HGB Conc 35 g/dL (31-36); Mean Corpuscular Hemoglobin 32 pg (27-31); Mean Corpuscular Volume 92 fL (80-94); Mean Platelet Volume 8.5 fL (7.4-10.4); Nucleated Red Blood Cells % 0.1; Platelet Count 201 10^3/uL (150-450); Red Blood Count 4.66 10^6 /uL (4.18-5.48); Red Cell Distribution Width 14 % (10-15); White Blood Count 6.1 10^3/uL (3.5-10.8)
[2021-05-01 11:58] LABS: INR 1.24 (0.86-1.15)
[2021-05-01 12:13] LABS: ALT 27 U/L (7-52); AST 19 U/L (13-39); Albumin 3.5 g/dL (3.2-5.2); Albumin/Globulin Ratio 1.1 (1-3); Alkaline Phosphatase 62 U/L (35-149); Anion Gap 6 mmol/L (2-11); Blood Urea Nitrogen 17 mg/dL (6-24); CO2 Carbon Dioxide 29 mmol/L (22-32); Calcium 9.3 mg/dL (8.6-10.3); Chloride 102 mmol/L (101-111); Creatine Kinase 50 U/L (10-223); Globulin 3.3 g/dL (2-4); Glucose 116 mg/dL (70-100); Potassium 4.9 mmol/L (3.5-5.0); Sodium 137 mmol/L (135-145); Total Protein 6.8 g/dL (6.4-8.9)
[2021-05-01 12:14] LABS: Troponin I 0.03 ng/mL (<0.03)
[2021-05-01 12:26] LABS: Magnesium 1.7 mg/dL (1.9-2.7)
[2021-05-01] MEDS ORDERED: Magnesium Sulfate IV 1GM/100ML 1 GM/100 ML BAG IV ONE (12:31)
[2021-05-01] MEDS ORDERED: Iodixanol (CONTRAST) 320 MG/ML 100 ML SDV IV ONE (13:41)
[2021-05-01] MEDS ORDERED: Lactated Ringers 1000 ml BAG 1,000 ML IV ONE (14:24)
[2021-05-01 15:13] LABS: Troponin I 0.03 ng/mL (<0.03)
[2021-05-01] MEDS ORDERED: Enoxaparin 80 MG/0.8 ML SYR SUBCUT ONE (15:26)
[2021-05-01] MEDS: NS 0.9% 1000 ml BAG 1,000 ML IV SCH (17:04)
[2021-05-01] MEDS: Nicotine PATCH 14 MG/24 HR PATCH TRANSDERM SCH (17:35)
[2021-05-01 17:58] LABS: PCO2 Arterial 33 mmHg (35-45); PO2 Arterial 90 mmHg (80-100)
[2021-05-01 18:26] LABS: Urine Benzodiazepine Screen Presumptive Positive (None Detect); Urine Cannabinoids Screen None Detected (None Detect); Urine Opiates Screen None Detected (None Detect)
[2021-05-01 18:26] LABS: Troponin I 0.03 ng/mL (<0.03)
[2021-05-01] MEDS ORDERED: LORazepam 2 mg VIAL 1 ml IV PUSH ONE (22:49)
[2021-05-01] MEDS ORDERED: Lorazepam PYXIS KEY PRN (22:49)
[2021-05-01] MEDS ORDERED: LORazepam 2 mg VIAL 1 ml ONE (22:54)
[2021-05-02] MEDS ORDERED: Enoxaparin 80 MG/0.8 ML SYR SUBCUT SCH (06:00)
[2021-05-02 06:04] LABS: ABS Monocytes 0.6 10^3/ul (0-0.8); ABS Neutrophils 4.9 10^3/ul (1.5-7.7); Eosinophil % 0.2 %; Hematocrit 44 % (42-52); Hemoglobin 14.9 g/dL (14.0-18.0); Lymphocyte % 26.5 %; Mean Corpuscular HGB Conc 34 g/dL (31-36); Mean Corpuscular Hemoglobin 32 pg (27-31); Mean Corpuscular Volume 92 fL (80-94); Mean Platelet Volume 9.2 fL (7.4-10.4); Nucleated Red Blood Cells % 0.1; Platelet Count 215 10^3/uL (150-450); Red Blood Count 4.74 10^6 /uL (4.18-5.48); Red Cell Distribution Width 14 % (10-15); White Blood Count 7.6 10^3/uL (3.5-10.8)
[2021-05-02 06:11] LABS: INR 1.76 (0.86-1.15)
[2021-05-02 06:27] LABS: Albumin 3.4 g/dL (3.2-5.2); Globulin 3.3 g/dL (2-4); Total Protein 6.7 g/dL (6.4-8.9); eGFR CKD-EPI 75.8 (>60)
[2021-05-02 06:39] LABS: Potassium 5.2 mmol/L (3.5-5.0)
[2021-05-02] MEDS: NS 0.9% 1000 ml BAG 1,000 ML IV SCH (09:01)
[2021-05-02] MEDS: Nicotine PATCH 14 MG/24 HR PATCH TRANSDERM SCH (09:02)
[2021-05-02] MEDS: Lidocaine PATCH 5% PATCH TRANSDERM SCH (20:22)
[2021-05-03] MEDS: Nicotine PATCH 14 MG/24 HR PATCH TRANSDERM SCH (08:05)
[2021-05-03] MEDS: Lidocaine Patch REMOVE NOTE PATCH OFF SCH (08:05)
[2021-05-03 08:32] LABS: ABS Lymphocytes 1.1 10^3/ul (1.0-4.8); ABS Monocytes 0.4 10^3/ul (0-0.8); Eosinophil % 0.8 %; Hematocrit 41 % (42-52); Hemoglobin 14.3 g/dL (14.0-18.0); Lymphocyte % 24.7 %; Mean Corpuscular HGB Conc 35 g/dL (31-36); Mean Corpuscular Hemoglobin 32 pg (27-31); Mean Corpuscular Volume 91 fL (80-94); Mean Platelet Volume 8.9 fL (7.4-10.4); Nucleated Red Blood Cells % 0.1; Platelet Count 196 10^3/uL (150-450); Red Blood Count 4.52 10^6 /uL (4.18-5.48); Red Cell Distribution Width 14 % (10-15); White Blood Count 4.6 10^3/uL (3.5-10.8)
[2021-05-03 08:38] LABS: Albumin 2.8 g/dL (3.2-5.2); Calcium 8.4 mg/dL (8.6-10.3); Globulin 2.8 g/dL (2-4); Magnesium 1.7 mg/dL (1.9-2.7); Potassium 3.5 mmol/L (3.5-5.0); Total Bilirubin 0.7 mg/dL (0.2-1.0); Total Protein 5.6 g/dL (6.4-8.9); eGFR CKD-EPI 75.8 (>60)
[2021-05-03] MEDS ORDERED: Magnesium Sulfate IV 3 GM in NS 0.9% 100 ml BAG 100 ML IVPB ONE (09:44)
[2021-05-03] MEDS ORDERED: Potassium Chlor 10 meq TAB PO ONE (09:46)
[2021-05-03] MEDS: Lidocaine PATCH 5% PATCH TRANSDERM SCH (20:59)
[2021-05-04 07:39] LABS: ABS Lymphocytes 1.9 10^3/ul (1.0-4.8); ABS Monocytes 0.5 10^3/ul (0-0.8); ABS Neutrophils 3.5 10^3/ul (1.5-7.7); Eosinophil % 0.6 %; Hematocrit 41 % (42-52); Hemoglobin 14.4 g/dL (14.0-18.0); Mean Corpuscular HGB Conc 35 g/dL (31-36); Mean Corpuscular Hemoglobin 32 pg (27-31); Mean Corpuscular Volume 91 fL (80-94); Platelet Count 217 10^3/uL (150-450); Red Blood Count 4.53 10^6 /uL (4.18-5.48); Red Cell Distribution Width 14 % (10-15); White Blood Count 5.9 10^3/uL (3.5-10.8)
[2021-05-04 08:01] LABS: Albumin 3.2 g/dL (3.2-5.2); Calcium 8.7 mg/dL (8.6-10.3); Globulin 3.2 g/dL (2-4); Magnesium 1.8 mg/dL (1.9-2.7); Potassium 4.5 mmol/L (3.5-5.0); Total Bilirubin 0.7 mg/dL (0.2-1.0); Total Protein 6.4 g/dL (6.4-8.9); eGFR CKD-EPI 91.2 (>60)
[2021-05-04] MEDS ORDERED: Magnesium Sulfate 2 gm BAG 2 GM/50 ML BAG IVPB ONE (08:21)
[2021-05-04] MEDS: Nicotine PATCH 14 MG/24 HR PATCH TRANSDERM SCH (10:35)
[2021-05-04] MEDS: Lidocaine Patch REMOVE NOTE PATCH OFF SCH (10:53)
[2021-05-04 18:25] VITALS: BP 105/77
== END 2021-05-04 16:15 | disposition home health service (06) | DRG 134 ==
LOC: ED 11:06 → EDHOLD 11:06 → SUATTDRO 15:58 → OBSVTOIN 15:58 → MEDTELE 18:45
PROVIDERS: ADMIT Internal Medicine; ATTEND Internal Medicine